=== PATIENT | female | born 1930 | race Two or more races ===

== ENCOUNTER 2016-09-15 21:28 | Emergency (ER) | payer MEDICARE, OTHER ==
[2016-09-15] MEDS ORDERED: ACETAMINOPHEN 325 MG TABLET PO ONE (22:38)
--- NOTE | 2016-09-15 22:38 | ER Document Report ---
ED Fall <AD KELLER - Last Filed: 09/16/16 19:28> - General Mode of Arrival: Ambulatory Information source: Patient, Relative <TREVER CADET - Last Filed: 09/16/16 21:37> - General Chief Complaint: Fall Stated Complaint: LEG NUMBNESS Notes: Patient is an 86 year old female who is brought in by family to the emergency department today for fall just prior to arrival and complaints of left leg pain with movement but numbness as well. Patient apparently is an independent walker at home and lost her footing today falling. Patient states that her "knee gave out from under her"and that is what caused the fall. Family is present and states that they did witness the fall, she did not hit her head or lose consciousness. Since this time she has been unable to bear weight on the left leg and complaining of it being numb. She is also complaining of some low back pain. Family denies that she has lost bladder or bowel function since the incident. (KEELYTREVER) - Related data Allergies/Adverse Reactions: warfarin [From Coumadin] Allergy (Verified 09/16/16 07:36) Past Medical History - General Information source: Patient, Relative - Social History Smoking Status: Never Smoker Frequency of alcohol use: None Drug Abuse: None Family History: Reviewed & Not Pertinent - Past Medical History Cardiac Medical History: Reports: Hx Hypertension Endocrine Medical History: Reports: Hx Diabetes Mellitus Type 2 - Immunizations Hx Diphtheria, Pertussis, Tetanus Vaccination: Yes <TREVER CADET - Last Filed: 09/16/16 21:37> Review of Systems - Review of Systems Constitutional: No symptoms reported EENT: No symptoms reported Cardiovascular: No symptoms reported Respiratory: No symptoms reported Gastrointestinal: No symptoms reported Genitourinary: No symptoms reported Female Genitourinary: No symptoms reported Musculoskeletal: See HPI Skin: No symptoms reported Hematologic/Lymphatic: No symptoms reported Neurological/Psychological: See HPI <DIMITRIPARITREVER WALTER - Last Filed: 09/16/16 21:37> Physical Exam - General General appearance: Appears well, Alert In distress: None - Respiratory Respiratory status: No respiratory distress Chest status: Nontender Breath sounds: Normal - CTAB Chest palpation: Normal. No: Flail segment, [place] frothy sputum, Purulent sputum , Subcutaneous emphysema, Sucking chest wound, Tender, Ecchymosis, Wounds, Other - Cardiovascular Rhythm: Regular Heart sounds: Normal auscultation Murmur: No Pulses: Normal: Radial, Decreased: Dorsalis pedis - bilateral dorsalis pedis pulses present but faint and appear equal. Normal capillary refill: Yes - Abdominal Inspection: Normal Distension: No distension Bowel sounds: Normal Tenderness: Nontender Organomegaly: No organomegaly - Back Back: Nontender - Extremities General upper extremity: Normal inspection, Nontender, Normal color, Normal ROM , Normal strength, Normal temperature. No: Tender, Edema General lower extremity: Normal inspection, Nontender, Normal color, Normal ROM , Normal strength, Normal temperature, Normal weight bearing, Other - Patient has full range of motion to bilateral lower extremities however complains of pain to the left foot and numbness and tingling to left lower leg. Very slight bruising/discoloration noted to the left foot when compared to the right.. No: Tender, Edema, Rocio's sign - Neurological Neuro grossly intact: Yes Cognition: Normal Orientation: AAOx4 Ramya Coma Scale Eye Opening: Spontaneous [place] Coma Scale Verbal: Confused - at patient's baseline per family Ramya Coma Scale Motor: Obeys Commands Ramya Coma Scale Total: 14 <AD KELLER - Last Filed: 09/16/16 19:28> <TREVER CADET - Last Filed: 09/16/16 21:37> - Vital signs Vitals: Temp Pulse Resp BP Pulse Ox 97.4 F 112 H 16 159/55 H 91 L 09/15/16 21:42 09/15/16 21:42 09/15/16 21:42 09/15/16 21:42 09/15/16 21:42 (AD KELLER) (TREVER CADET) - Notes Notes: PHYSICAL EXAMINATION: GENERAL: Elderly, demented, but in no acute distress. HEAD: Atraumatic, normocephalic. EYES: Pupils equal round and reactive to light, extraocular movements intact, sclera anicteric, conjunctiva are normal. NECK: Normal range of motion, supple without lymphadenopathy LUNGS: CTAB and equal. No wheezes rales or rhonchi. HEART: Regular rate and rhythm without murmurs ABDOMEN: Soft, no tenderness. No guarding, no rebound BACK: Lumbar vertebral tenderness, decreased ROM secondary to pain GI/: no CVA tenderness EXTREMITIES: Mild tenderness to the left lateral hip, decreased range of motion secondary to pain, no pitting edema. No cyanosis. NEUROLOGICAL: Cranial nerves grossly intact. Decreased sensation to the left lower extremity compared to right, good distal pulses, good capillary refill PSYCH: Normal mood, normal affect. SKIN: Warm, Dry, normal turgor, no rashes or lesions noted (TREVER CADET) Course - Laboratory Result Diagrams: 09/16/16 17:06 09/16/16 17:06 - Diagnostic Test Radiology reviewed: Image reviewed, Reports reviewed - EKG Interpretation by Me EKG shows normal: Sinus rhythm, [place], Intervals, QRS Complexes, ST-T Waves Rate: Normal Rhythm: A.Fib When compared to previous EKG there are: Previous EKG unavailable <AD KELLER - Last Filed: 09/16/16 19:28> - Laboratory Result Diagrams: 09/16/16 17:06 09/16/16 17:06 <TREVER CADET - Last Filed: 09/16/16 21:37> - Re-evaluation Re-evalutation: 09/16/16 15:20 Decreased arterial flow to left lower extremity on arterial ultrasound per Dr. Jeb Hicks, venous ultrasound negative for DVT. MRI shows large central disc protrusion/herniation at L3-L4 which effaces the thecal sac. Patient presentation and findings were discussed with neurosurgeon Dr. Lopez and vascular surgeon Dr. Macedo at [facility]. Dr. Macedo accepts patient for transfer and concurs with starting heparin therapy at this time. [place] type TLSO brace recommended per Dr. Lopez if we have it available here otherwise they will consult when patient is transferred. Patient remained hemodynamically stable although with asymptomatic hypertension. Patient took home medications as usual today per family members and diet tray was provided. Family reports patient's blood pressure is typically elevated at home with unknown values. Collaborated with ED physician Dr. Connor during evaluation and medical decision-making. 09/16/16 19:00 Patient remains hemodynamically stable, in no distress. Pending transfer vehicle for transfer to [facility] at this time. Report was given to Trever Cadet PA-C to resume care of patient. (AD KELLER) 09/16/16 01:50 CAT scan reveals a compression at L5 vertebra. Family denies that she has ever had this before I suspect that this is from the fall tonight. Due to numbness in left leg and decrease in sensation on physical exam I have placed an order for an MRI which cannot be done until in the morning as we do not have MRI tonight. 09/16/16 02:54 Nurse attempted to ambulate patient, who usually ambulates independently at home , but pt could not even stand on the left leg with assistance due to numbness and pain. 09/16/16 21:00 Transport here to take patient, pt is stable for discharge, no complaints. normal vital signs. (TREVER CADET) - Vital Signs Vital signs: Temp Pulse Resp BP Pulse Ox 97.4 F 112 H 30 H 193/89 H 95 09/15/16 21:42 09/15/16 21:42 09/16/16 20:52 09/16/16 20:52 09/16/16 20:31 (AD KELLER) (TREVER CADET) - Laboratory Laboratory results interpreted by me: 09/16/16 09/16/16 09/16/16 00:30 03:09 03:09 WBC 16.0 H RBC 3.62 L Hgb 9.9 L Hct 30.2 L MCHC RDW 23.2 H Seg Neuts % (Manual) 82 H Band Neutrophils % 2 L Lymphocytes % (Manual) 10 L Abs Neuts (Manual) 13.4 H BUN 37 H Est GFR (Non-Af Amer) 58 L Glucose 153 H POC Glucose 240 H AST 38 H Creatine Kinase 424 H Total Protein 5.8 L Albumin 2.8 L Urine Protein Urine Glucose (UA) Urine Blood Ur Leukocyte Esterase 09/16/16 09/16/16 09/16/16 04:23 17:06 17:06 WBC 13.5 H RBC 3.63 L Hgb 9.9 L Hct 31.0 L MCHC 31.8 L RDW 22.5 H Seg Neuts % (Manual) 85 H Band Neutrophils % Lymphocytes % (Manual) 9 L Abs Neuts (Manual) 11.5 H BUN Est GFR (Non-Af Amer) Glucose 126 H POC Glucose AST 83 H Creatine Kinase Total Protein 5.6 L Albumin 2.6 L Urine Protein 30 H Urine Glucose (UA) 50 H Urine Blood SMALL H Ur Leukocyte Esterase MODERATE H (AD KELLER) Discharge <AD KELLER - Last Filed: 09/16/16 19:28> <TREVER CADET - Last Filed: 09/16/16 21:37> - Discharge Clinical Impression: Arterial insufficiency Condition: Stable Disposition: [facility] Referrals: SARAH MUELLER DO [Primary Care Provider] - Follow up as needed
[2016-09-16] MEDS ORDERED: OXYCODONE HCL IR 5 MG TABLET PO ONE (01:42)
[2016-09-16 03:19] LABS: HEMATOCRIT 30.2 % (36.0-47.0); HEMOGLOBIN 9.9 g/dL (12.0-15.5); HGB HCT DIFFERENCE -0.5; MEAN CORPUSCULAR HEMOGLOBIN 27.3 pg (27.0-33.4); MEAN CORPUSCULAR HGB CONC 32.7 g/dL (32.0-36.0); MEAN CORPUSCULAR VOLUME 83 fl (80-97); RED BLOOD COUNT 3.62 10^6/uL (3.72-5.28); RED CELL DISTRIBUTION WIDTH 23.2 % (11.5-14.0)
[2016-09-16 03:31] LABS: ALANINE AMINOTRANSFERASE 17 U/L (9-52); ALBUMIN 2.8 g/dL (3.5-5.0); ALKALINE PHOSPHATASE 64 U/L (38-126); ANION GAP 12 (5-19); ASPARTATE AMINO TRANSFERASE 38 U/L (14-36); BILIRUBIN,TOTAL 0.5 mg/dL (0.2-1.3); BLOOD UREA NITROGEN 37 mg/dL (7-20); CALCIUM 8.8 mg/dL (8.4-10.2); CARBON DIOXIDE 22 mmol/L (22-30); CHLORIDE 105 mmol/L (98-107); CREATINE KINASE 424 U/L (30-135); CREATININE RESULT 0.92 mg/dL (0.52-1.25); GLUCOSE 153 mg/dL (75-110); POTASSIUM 4.6 mmol/L (3.6-5.0); SODIUM 139.2 mmol/L (137-145); TOTAL PROTEIN 5.8 g/dL (6.3-8.2)
[2016-09-16 03:42] LABS: CREATINE KINASE MB 2.43 ng/mL (<4.55); TROPONIN I 0.03 ng/mL
[2016-09-16 03:50] LABS: BAND NEUTROPHILS % (MANUAL) 2 % (3-5); BASOPHILS % (MANUAL) 1 % (0-2); EOSINOPHILS % (MANUAL) 1 % (0-6); LYMPHOCYTES % (MANUAL) 10 % (13-45); TOTAL CELLS COUNTED 100
[2016-09-16 03:51] LABS: ANISOCYTOSIS 3+
[2016-09-16 08:27] LABS: APPEARANCE,URINE SLIGHTLY-CLOUDY; BILIRUBIN,URINE NEGATIVE (NEGATIVE); GLUCOSE, URINE 50 mg/dL (NEGATIVE); KETONES,URINE NEGATIVE (NEGATIVE); LEUKOCYTE ESTERASE,URINE MODERATE (NEGATIVE); NITRITE,URINE NEGATIVE (NEGATIVE); PROTEIN,URINE 30 mg/dL (NEGATIVE); URINE SPECIFIC GRAVITY 1.023; UROBILINOGEN,URINE NEGATIVE mg/dL (<2.0)
[2016-09-16] MEDS ORDERED: NORMAL SALINE 1000 ML 1,000 ML IV ONE (09:11)
--- NOTE | 2016-09-16 13:40 | EKG REPORT ---
SEVERITY:- ABNORMAL ECG - ATRIAL FIBRILLATION : Confirmed by: Renee Garcia MD 16-Sep-2016 13:38:26
[2016-09-16] MEDS ORDERED: HEPARIN SODIUM,PORCINE/D5W 250 ML IV PRN (15:21)
[2016-09-16] MEDS ORDERED: HEPARIN SOD (PORCINE) 1,000 UNIT/ML 10 ML VIAL IV ONE (15:21)
[2016-09-16] MEDS ORDERED: HEPARIN SOD (PORCINE) 1,000 UNIT/ML 10 ML VIAL IV PRN (15:21)
[2016-09-16] MEDS ORDERED: METOPROLOL TARTRATE 50 MG TABLET PO ONE (16:42)
[2016-09-16 17:20] LABS: HEMOGLOBIN 9.9 g/dL (12.0-15.5); HGB HCT DIFFERENCE -1.3; MEAN CORPUSCULAR HEMOGLOBIN 27.2 pg (27.0-33.4); MEAN CORPUSCULAR HGB CONC 31.8 g/dL (32.0-36.0); MEAN CORPUSCULAR VOLUME 86 fl (80-97); RED BLOOD COUNT 3.63 10^6/uL (3.72-5.28); RED CELL DISTRIBUTION WIDTH 22.5 % (11.5-14.0); WHITE BLOOD COUNT 13.5 10^3/uL (4.0-10.5)
[2016-09-16 17:28] LABS: PARTIAL THROMBOPLASTIN TIME 29.9 SEC (23.5-35.8); PROTHROMBIN TIME 13.4 SEC (11.4-15.4)
[2016-09-16 17:39] LABS: BASOPHILS % (MANUAL) 0 % (0-2); EOSINOPHILS % (MANUAL) 1 % (0-6); LYMPHOCYTES % (MANUAL) 9 % (13-45); TOTAL CELLS COUNTED 100
[2016-09-16 17:40] LABS: ANISOCYTOSIS 2+; OVALOCYTES SLIGHT; POLYCHROMASIA SLIGHT; TOXIC GRANULATION SLIGHT
[2016-09-16 19:22] LABS: ALANINE AMINOTRANSFERASE 28 U/L (9-52); ALBUMIN 2.6 g/dL (3.5-5.0); ALKALINE PHOSPHATASE 64 U/L (38-126); ANION GAP 10 (5-19); ASPARTATE AMINO TRANSFERASE 83 U/L (14-36); BILIRUBIN,TOTAL 0.4 mg/dL (0.2-1.3); BLOOD UREA NITROGEN 18 mg/dL (7-20); CALCIUM 8.7 mg/dL (8.4-10.2); CARBON DIOXIDE 23 mmol/L (22-30); CHLORIDE 105 mmol/L (98-107); CREATININE RESULT 0.57 mg/dL (0.52-1.25); GLUCOSE 126 mg/dL (75-110); POTASSIUM 4.5 mmol/L (3.6-5.0); SODIUM 137.6 mmol/L (137-145); TOTAL PROTEIN 5.6 g/dL (6.3-8.2)
[2016-09-16 20:57] VITALS: BP 193/89
--- NOTE | 2016-09-17 08:00 | XCELERA REPORT ---
[address] [address] Lower Extremity Arterial Evaluation Name: ORA EVERETT Age: 86 yrs Gender: Female : 1930 Patient Status: Emergency Patient Location: ER Study Date: 09/16/2016 01:59 PM Procedure: A color flow and duplex scan of the lower extremity arteries was performed on the left with velocity and waveform anaylsis. Reason For Study: left lower leg/foot pain and discoloration Ordering Physician: AD KELLER Performed By: Sandi Byrd Measurements and Calculations Right Left LEGAL EXECUTIVE PSV 120.1 32.4 cm/sec Prox PFA PSV -15.3 cm/sec Prox SFA PSV 20.1 cm/sec Mid SFA PSV -16.1 cm/sec Dist SFA PSV -16.1 cm/sec Prox Pop A PSV 9.6 cm/sec Prox ERICKA PSV 14.6 cm/sec Edmond Pedis PSV 21.1 10.8 cm/sec Right Side Arterial Evaluation Triphasic in common Femoral artery, Monophasic in Dorsalis Pedis. Left Side Arterial Evaluation Abnormally low velocity, waveform,monophasic, severely dampened flow are present, from the Common Femoral artery down to the infrageniculate vessels. Worse distally. The ankle-brachial index was not done. 50-99 % stenosis is noted at the inflow, possible sequential disease.. Critical Findings Called in to the ER where clinical confirmation of severity was confirmed. Advised transfer for possible urgent vascular intervention. Interpretation Summary Severe hemodynamically significant lesions in the left lower extremity only, on duplex imaging, at rest. Likely limb threatening ischemia on left. Probable significant disease on right as well. : AD KELLER > Monty Hicks
== END 2016-09-16 21:15 | disposition short-term general hospital (02) ==
LOC: ER 21:28
DX: E11.51 Type 2 diabetes mellitus with diabetic peripheral angiopathy without gangrene (principal); I77.1 Stricture of artery; M51.26 Other intervertebral disc displacement, lumbar region; R20.0 Anesthesia of skin; R20.2 Paresthesia of skin; M79.605 Pain in left leg; W19.XXXA Unspecified fall, initial encounter; Y92.009 Unspecified place in unspecified non-institutional (private) residence as the place of occurrence of the external cause; I48.91 Unspecified atrial fibrillation; I10 Essential (primary) hypertension; F03.90 Unspecified dementia, unspecified severity, without behavioral disturbance, psychotic disturbance, mood disturbance, and anxiety; Z88.8 Allergy status to other drugs, medicaments and biological substances; Z79.899 Other long term (current) drug therapy
CPT/HCPCS: 93005; 99285; 96361; 96374; 36415; 82553; 82962; 82550; 85025; 85610; 85730; 80053; 81001; 84484; 93926 ×2; 93971; 72148; 73610; 71010; 73630; 73562; 72192; 93010; A9270 ×3; J1644 ×2; J7030

== ENCOUNTER 2017-01-01 09:57 | Observation (INO) | payer MEDICARE, OTHER ==
--- NOTE | 2017-01-01 10:45 | ER Document Report ---
ED Fall - General Chief Complaint: Fall Stated Complaint: FALL/UNCERTAIN INJURY Mode of Arrival: Medic Information source: Relative Cannot obtain history due to: Dementia Notes: Patient has had decreased appetite and weight loss gradually over the past few weeks. Patient did see her primary doctor yesterday in the office and had a low blood pressure reading in her blood pressure medication metoprolol was decreased to 25 mg a day. Patient got up to go the bathroom yesterday sometime after 7 PM and had fallen in the floor. Patient spouse denies any loss of consciousness. Family state that this is the third fall for patient since September. Patient has had diarrhea for the past 5 days since starting a new medication, embrel. Patient denies any abdominal pain, nausea, vomiting or shortness of breath. Patient does report some chest heaviness that started this morning, but is now resolved. Patient complains of back pain since the fall. - HPI Occurred: Yesterday Where: Home Context: Fell from standing Associated symptoms: denies: Lost consciousness Location of injury/pain: Back. No: Abdomen, Upper extremity, Lower extremity Quality of pain: Achy - Upper back pain Prehospital interventions: No: C-collar, Backboard - Related data Allergies/Adverse Reactions: warfarin [From Coumadin] Allergy (Verified 09/16/16 07:36) Past Medical History - General Information source: Patient, Relative - Social History Smoking Status: Never Smoker Frequency of alcohol use: None Drug Abuse: None Lives with: Spouse/Significant other Family History: Reviewed & Not Pertinent - Past Medical History Cardiac Medical History: Reports: Hx Atrial Fibrillation, Hx DVT, Hx Hypercholesterolemia, Hx Hypertension Musculoskeltal Medical History: Reports Hx Arthritis - Rheumatoid arthritis, Reports Other - Compression fracture of the lumbar area Past Surgical History: Reports: Hx Vascular Surgery - Recent vascular surgery performed in September to remove a DVT - Immunizations Hx Diphtheria, Pertussis, Tetanus Vaccination: Yes Review of Systems - Review of Systems Constitutional: Weight loss - 7 pound weight loss over 3 weeks. denies: Fever EENT: No symptoms reported Cardiovascular: Chest pain - Patient reports chest heaviness that started this morning Respiratory: No symptoms reported. denies: Cough, Short of breath Gastrointestinal: Diarrhea, Poor appetite. denies: Abdominal pain, Nausea, Vomiting Genitourinary: No symptoms reported. denies: Dysuria Female Genitourinary: No symptoms reported Musculoskeletal: Back pain Skin: No symptoms reported Hematologic/Lymphatic: No symptoms reported Neurological/Psychological: Dementia Physical Exam - Vital signs Vitals: Pulse Ox 100 01/01/17 10:00 - General General appearance: Appears well, Alert In distress: None - HEENT Head: Normocephalic, Atraumatic. No: Abrasions, Wheat's sign, Ecchymosis, [place]'s eyes Eyes: Normal Extraocular movements intact: Yes Eyelashes: Normal Pupils: PERRL Ears: Normal External canal: Normal Tympanic membrane: Normal. No: Hemotympanum Nasal: Normal Mouth/Lips: Normal. No: Dental fracture Mucous membranes: Normal Pharynx: Normal. No: Erythema, Tonsillar hypertrophy Neck: Normal, Supple. No: Lymphadenopathy Notes: No cervical midline tenderness, step-off or deformity - Respiratory Respiratory status: No respiratory distress Chest status: Nontender Breath sounds: Normal. No: Rales, Rhonchi, Stridor, Wheezing Chest palpation: Normal - Cardiovascular Rhythm: Irregularly irregular Heart sounds: S1 appreciated, S2 appreciated - Abdominal Inspection: Normal Distension: No distension Bowel sounds: Normal Tenderness: Nontender Organomegaly: No organomegaly - Back Back: Vertebra tenderness - Upper thoracic tenderness. No: Deformity/step-off, CVA tenderness - Extremities General upper extremity: Normal inspection, Nontender, Normal color, Normal ROM , Normal strength. No: Edema General lower extremity: Normal inspection, Nontender, Normal color, Normal ROM , Normal strength. No: Edema - Neurological Neuro grossly intact: Yes Ramya Coma Scale Eye Opening: Spontaneous Ramya Coma Scale Verbal: Oriented [place] Coma Scale Motor: Obeys Commands Ramay Coma Scale Total: 15 - Psychological Associated symptoms: Normal affect, Normal mood - Skin Skin Temperature: Warm Skin Moisture: Dry Skin Color: Normal Course - Re-evaluation Re-evalutation: 01/01/17 12:[address] Nettles regarding patient presentation, reviewed patient's diagnostic test results, EKG and imaging studies. Recommends ordering a urine culture and consulting with hospitalist for admission. 01/01/17 13:03 Patient denies any chest discomfort. Patient states that back pain is improved some. Discussed Test results of diagnostic test results with her spouse. Patient continues with Alex maier on the threat monitoring analyst 01/01/17 13:[address] Millard who agrees to accept patient to telemetry as observation - Vital Signs Vital signs: Temp Pulse Resp BP Pulse Ox 97.6 F 25 H 146/64 H 98 01/01/17 10:26 01/01/17 12:01 01/01/17 12:01 01/01/17 12:01 - Laboratory Result Diagrams: 01/01/17 10:15 01/01/17 10:15 Laboratory results interpreted by me: 01/01/17 01/01/17 01/01/17 10:15 10:15 11:55 WBC 13.5 H Hgb 11.6 L MCHC 31.4 L RDW 20.9 H Seg Neutrophils % 84.6 H Lymphocytes % 8.6 L Absolute Neutrophils 11.4 H BUN 43 H Est GFR (Non-Af Amer) 50 L Glucose 137 H AST 38 H Urine Blood SMALL H Ur Leukocyte Esterase MODERATE H Urine Ascorbic Acid 20 H Labs- Entire Visit 01/01/17 01/01/17 01/01/17 10:15 10:15 10:15 WBC 13.5 H RBC 4.15 Hgb 11.6 L Hct 37.1 MCV 89 MCH 28.1 MCHC 31.4 L RDW 20.9 H Plt Count 272 Seg Neutrophils % 84.6 H Lymphocytes % 8.6 L Monocytes % 5.8 Eosinophils % 0.3 Basophils % 0.7 Absolute Neutrophils 11.4 H Absolute Lymphocytes 1.2 Absolute Monocytes 0.8 Absolute Eosinophils 0.0 Absolute Basophils 0.1 PT INR APTT Sodium 139.4 Potassium 4.8 Chloride 102 Carbon Dioxide 26 Anion Gap 11 BUN 43 H Creatinine 1.04 Est GFR ( Amer) > 60 Est GFR (Non-Af Amer) 50 L Glucose 137 H Calcium 10.0 Magnesium 2.3 Total Bilirubin 0.7 Direct Bilirubin 0.1 Indirect Bilirubin Not Reportable Neonat Total Bilirubin Not Reportable AST 38 H ALT 37 Alkaline Phosphatase 68 Creatine Kinase 38 CK-MB (CK-2) 2.55 Troponin I 0.036 Total Protein 6.8 Albumin 4.0 Lipase 264.4 Urine Color Urine Appearance Urine pH Ur Specific [place] Urine Protein Urine Glucose (UA) Urine Ketones Urine Blood Urine Nitrite Urine Bilirubin Urine Urobilinogen Ur Leukocyte Esterase Urine WBC (Auto) Urine RBC (Auto) Urine Bacteria (Auto) Squamous Epi Cells Auto Urine Ascorbic Acid Digoxin 1.42 01/01/17 01/01/17 10:15 11:55 WBC RBC Hgb Hct MCV MCH MCHC RDW Plt Count Seg Neutrophils % Lymphocytes % Monocytes % Eosinophils % Basophils % Absolute Neutrophils Absolute Lymphocytes Absolute Monocytes Absolute Eosinophils Absolute Basophils PT 13.8 INR 1.03 APTT 26.3 Sodium Potassium Chloride Carbon Dioxide Anion Gap BUN Creatinine Est GFR ( Amer) Est GFR (Non-Af Amer) Glucose Calcium Magnesium Total Bilirubin Direct Bilirubin Indirect Bilirubin Neonat Total Bilirubin AST ALT Alkaline Phosphatase Creatine Kinase CK-MB (CK-2) Troponin I Total Protein Albumin Lipase Urine Color YELLOW Urine Appearance SLIGHTLY-CLOUDY Urine pH 6.0 Ur Specific [place] 1.017 Urine Protein NEGATIVE Urine Glucose (UA) NEGATIVE Urine Ketones NEGATIVE Urine Blood SMALL H Urine Nitrite NEGATIVE Urine Bilirubin NEGATIVE Urine Urobilinogen NEGATIVE Ur Leukocyte Esterase MODERATE H Urine WBC (Auto) 2 Urine RBC (Auto) 5 Urine Bacteria (Auto) TRACE Squamous Epi Cells Auto 2 Urine Ascorbic Acid 20 H Digoxin - Diagnostic Test Radiology reviewed: Reports reviewed Discharge - Discharge Clinical Impression: Fall Qualifiers: Encounter type: initial encounter Qualified Code(s): W19.XXXA - Unspecified fall, initial encounter Back pain Qualifiers: Back pain location: thoracic back pain Chronicity: unspecified Back pain laterality: unspecified Qualified Code(s): M54.6 - Pain in thoracic spine Condition: Stable Disposition: ADMITTED OBSERVATION Admitting Provider: Hospitalist Unit Admitted: Telemetry
[2017-01-01 11:16] LABS: ABSOLUTE BASOPHILS # (AUTO) 0.1 10^3/uL (0.0-0.2); ABSOLUTE LYMPHOCYTES (AUTO) 1.2 10^3/uL (0.5-4.7); ABSOLUTE MONOCYTES (AUTO) 0.8 10^3/uL (0.1-1.4); ABSOLUTE NEUT (AUTO) 11.4 10^3/uL (1.7-8.2); BASOPHILS % (AUTO) 0.7 % (0-2); EOSINOPHILS % (AUTO) 0.3 % (0-6); HEMATOCRIT 37.1 % (36.0-47.0); HEMOGLOBIN 11.6 g/dL (12.0-15.5); HGB HCT DIFFERENCE -2.3; LYMPHOCYTES % (AUTO) 8.6 % (13-45); MEAN CORPUSCULAR HEMOGLOBIN 28.1 pg (27.0-33.4); MEAN CORPUSCULAR HGB CONC 31.4 g/dL (32.0-36.0); MEAN CORPUSCULAR VOLUME 89 fl (80-97); MONOCYTES % (AUTO) 5.8 % (3-13); RED BLOOD COUNT 4.15 10^6/uL (3.72-5.28); RED CELL DISTRIBUTION WIDTH 20.9 % (11.5-14.0); SEGMENTED NEUTROPHILS % (AUTO) 84.6 % (42-78); WHITE BLOOD COUNT 13.5 10^3/uL (4.0-10.5)
[2017-01-01 11:26] LABS: PROTHROMBIN TIME 13.8 SEC (11.4-15.4)
[2017-01-01 11:27] LABS: PARTIAL THROMBOPLASTIN TIME 26.3 SEC (23.5-35.8)
[2017-01-01 11:28] LABS: ALANINE AMINOTRANSFERASE 37 U/L (9-52); ALKALINE PHOSPHATASE 68 U/L (38-126); ANION GAP 11 (5-19); ASPARTATE AMINO TRANSFERASE 38 U/L (14-36); BILIRUBIN,DIRECT 0.1 mg/dL (0.0-0.4); BILIRUBIN,TOTAL 0.7 mg/dL (0.2-1.3); BLOOD UREA NITROGEN 43 mg/dL (7-20); CARBON DIOXIDE 26 mmol/L (22-30); CHLORIDE 102 mmol/L (98-107); CREATINE KINASE 38 U/L (30-135); CREATININE RESULT 1.04 mg/dL (0.52-1.25); DIGOXIN 1.42 ng/mL (0.8-2.0); GLUCOSE 137 mg/dL (75-110); LIPASE 264.4 U/L (23-300); MAGNESIUM 2.3 mg/dL (1.6-2.3); POTASSIUM 4.8 mmol/L (3.6-5.0); SODIUM 139.4 mmol/L (137-145); TOTAL PROTEIN 6.8 g/dL (6.3-8.2)
[2017-01-01 11:37] LABS: CREATINE KINASE MB 2.55 ng/mL (<4.55)
[2017-01-01 11:41] LABS: TROPONIN I 0.036 ng/mL
[2017-01-01] MEDS ORDERED: NORMAL SALINE 1000 ML 250 ML IV ONE (12:11)
[2017-01-01 12:19] LABS: APPEARANCE,URINE SLIGHTLY-CLOUDY; BILIRUBIN,URINE NEGATIVE (NEGATIVE); GLUCOSE, URINE NEGATIVE (NEGATIVE); KETONES,URINE NEGATIVE (NEGATIVE); LEUKOCYTE ESTERASE,URINE MODERATE (NEGATIVE); NITRITE,URINE NEGATIVE (NEGATIVE); PROTEIN,URINE NEGATIVE (NEGATIVE); URINE SPECIFIC GRAVITY 1.017; UROBILINOGEN,URINE NEGATIVE mg/dL (<2.0)
[2017-01-01] MEDS ORDERED: ACETAMINOPHEN 325 MG TABLET PO ONE (13:02)
[2017-01-01] MEDS ORDERED: ASPIRIN 81 MG TABLET, CHEWABLE PO ONE (13:07)
[2017-01-01] MEDS ORDERED: IPRATROPIUM/ALBUTEROL 0.5-2.5 MG/3 ML AMPUL NEB PRN (14:12)
[2017-01-01] MEDS ORDERED: ONDANSETRON HCL INJ/PF 4 MG/2 ML SDV IV PRN (14:12)
[2017-01-01] MEDS ORDERED: ONDANSETRON 4 MG TAB.RAPDIS PO PRN (14:12)
--- NOTE | 2017-01-01 14:32 | PDOC H&P ---
History of Present Illness Admission Date/PCP: 01/01/17 13:28 Patient complains of: Back pain History of Present Illness: ORA EVERETT is a 86 year old female who presented to emergency room with back pain. The patient has dementia and denies any complaints whatsoever. History is obtained from the family. She went to her regular doctor point yesterday and her blood pressure was relatively low and her metoprolol dose was cut in half to 25 mg twice a day. Patient has had several falls since yesterday and had some complaints of back pain. The patient herself denies having any pain at all. Patient was found to have several old compression fractures on her x- rays. The patient had troponins obtained for an unclear reason however they were at the high end of normal. MRSA room personnel were concerned that this may represent some type of cardiac event and have asked us to monitor the patient overnight. In the patient denies any chest pain. She does have a history of atrial fibrillation. The patient has had some diarrhea for the last several days. She denies any chest pain or shortness of breath. Denies any loss of consciousness. Past Medical History Cardiac Medical History: Reports: Atrial Fibrillation, DVT, Hyperlipidema, Hypertension Pulmonary Medical History: Reports: None EENT Medical History: Reports: None Endocrine Medical History: Reports: Diabetes Mellitus Type 2 Renal/ Medical History: Reports: None Malignancy Medical History: Reports: None Musculoskeltal Medical History: Reports: Arthritis - Rheumatoid arthritis, Other - Compression fracture of the lumbar area Psychiatric Medical History: Reports: Dementia Hematology: Reports: None Infectious Medical History: Reports: None Past Surgical History Past Surgical History: Reports: Vascular Surgery - Recent vascular surgery performed in September to remove a DVT Social History Information Source: Relative Lives with: Spouse/Significant other Smoking Status: Never Smoker Frequency of Alcohol Use: None Hx Recreational Drug Use: No Drugs: None Hx Prescription Drug Abuse: No - Advance Directive Resuscitation Status: Full Code Surrogate healthcare decision maker:: Her Family History Family History: Mother at age 91 diabetes mellitus. Father in his 80s with hypertension. Parental Family History Reviewed: Yes Children Family History Reviewed: No Sibling(s) Family History Reviewed.: No Medication/Allergy Allergies/Adverse Reactions: warfarin [From Coumadin] Allergy (Verified 09/16/16 07:36) Review of Systems ROS unobtainable: Due to mental status Physical Exam Vital Signs: Temp Pulse Resp BP Pulse Ox 97.6 F 25 H 146/64 H 98 01/01/17 10:26 01/01/17 12:01 01/01/17 12:01 01/01/17 12:01 General appearance: PRESENT: no acute distress Head exam: PRESENT: atraumatic, normocephalic Eye exam: PRESENT: conjunctiva pink, EOMI, PERRLA. ABSENT: scleral icterus Mouth exam: PRESENT: moist, tongue midline Neck exam: ABSENT: carotid bruit, JVD, lymphadenopathy, thyromegaly Respiratory exam: PRESENT: clear to auscultation madhav. ABSENT: rales, rhonchi, wheezes Cardiovascular exam: PRESENT: irregular rhythm. ABSENT: diastolic murmur, rubs , systolic murmur Pulses: PRESENT: normal dorsalis pedis pul Vascular exam: PRESENT: normal capillary refill GI/Abdominal exam: PRESENT: normal bowel sounds, soft. ABSENT: distended, guarding, mass, organolmegaly, rebound, tenderness Rectal exam: PRESENT: deferred Extremities exam: ABSENT: calf tenderness, clubbing, pedal edema Neurological exam: PRESENT: awake, oriented to person. ABSENT: oriented to place, oriented to time, oriented to situation, motor sensory deficit Psychiatric exam: PRESENT: appropriate affect Skin exam: PRESENT: dry, intact, warm. ABSENT: cyanosis, rash Results Impressions: Chest X-Ray 01/01/17 10:38 IMPRESSION: Borderline cardiomegaly with no acute cardiopulmonary disease. Lumbar Spine X-Ray 01/01/17 10:39 IMPRESSION: All compression changes at L2 and is. Endplate changes at L5 of uncertain age. Thoracic Spine X-Ray 01/01/17 10:39 IMPRESSION: Multiple compression fractures as described. Generally appear to be old, but there certainly could be an acute component. Head CT 01/01/17 10:40 IMPRESSION: 1. There are involutional changes of aging with evidence of chronic microvascular ischemic disease. 2. 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 Recommend clinical and historical correlation. Assessment & Plan - Diagnosis (1) Fall Is this a current diagnosis for this admission?: YesPlan: The patient has had multiple falls but did not have any loss of consciousness. She does have compression fractures on her thoracic spine but they appear to be old. The patient denies any loss of consciousness and this is probably not related to syncope. Her blood pressure was decreased yesterday and her metoprolol was decreased. Patient currently denies any pain. (2) Elevated troponin Is this a current diagnosis for this admission?: YesPlan: Troponin was checked and was on the upper limit of normal. Will monitor overnight to make certain that she's not had any type of acute cardiac event although she denies any chest pain or shortness of breath. (3) Atrial fibrillation Is this a current diagnosis for this admission?: YesPlan: Patient is rate control. (4) Dementia Is this a current diagnosis for this admission?: Yes (5) Hyperlipidemia Is this a current diagnosis for this admission?: Yes (6) Hypertension Is this a current diagnosis for this admission?: YesPlan: Patient recently had her Toprol dose decreased. Will check orthostatics to make certain she does not have orthostatic hypotension. (7) Rheumatoid arthritis Is this a current diagnosis for this admission?: YesPlan: By report the patient has been on Enbrel recently. We'll hold (8) Diabetes mellitus Is this a current diagnosis for this admission?: YesPlan: We'll cover with sliding scale insulin. (9) Back pain Is this a current diagnosis for this admission?: YesPlan: Patient denies any back pain at this time. She does have compression fractures on thoracic spine x-ray films. (10) DVT (deep venous thrombosis) Is this a current diagnosis for this admission?: YesPlan: Patient had a DVT in September. We'll start her anticoagulation. Family is to bring in the medication list. - Time Time Spent: 50 to 70 Minutes - Plan Summary Plan Summary: We'll admit as an observation as I anticipate this will require less than two midnight hospital stay.
[2017-01-01] MEDS ORDERED: ENOXAPARIN SODIUM INJ 30 MG/0.3 ML DISP.SYRIN SUBCUT ONE (15:30)
[2017-01-01 17:18] LABS: CREATINE KINASE MB 3.74 ng/mL (<4.55); TROPONIN I 0.06 ng/mL
--- NOTE | 2017-01-01 19:37 | EKG REPORT ---
SEVERITY:- ABNORMAL ECG - ATRIAL FIBRILLATION, V-RATE 62-143 REPOL ABNRM SUGGESTS ISCHEMIA, DIFFUSE LEADS : Confirmed by: Yadira Teresa 01-Jan-2017 19:36:13
[2017-01-01] MEDS: FAMOTIDINE 20 MG TABLET PO SCH (22:06)
[2017-01-01 22:39] LABS: CREATINE KINASE MB 4.39 ng/mL (<4.55); TROPONIN I 0.065 ng/mL
[2017-01-02 04:21] LABS: CREATINE KINASE MB 5.05 ng/mL (<4.55); TROPONIN I 0.067 ng/mL
[2017-01-02 04:44] LABS: ANION GAP 11 (5-19); BLOOD UREA NITROGEN 30 mg/dL (7-20); CALCIUM 9.4 mg/dL (8.4-10.2); CARBON DIOXIDE 23 mmol/L (22-30); CHLORIDE 110 mmol/L (98-107); CREATININE RESULT 0.75 mg/dL (0.52-1.25); GLUCOSE 79 mg/dL (75-110); POTASSIUM 4.4 mmol/L (3.6-5.0); SODIUM 143.5 mmol/L (137-145)
[2017-01-02] MEDS ORDERED: METOPROLOL TARTRATE 50 MG TABLET ONE (07:09)
[2017-01-02] MEDS ORDERED: METOPROLOL TARTRATE 50 MG TABLET PO ONE (07:15)
[2017-01-02] MEDS ORDERED: ENOXAPARIN SODIUM INJ 40 MG/0.4 ML DISP.SYRIN SUBCUT SCH (08:00)
[2017-01-02] MEDS ORDERED: ENOXAPARIN SODIUM INJ 30 MG/0.3 ML DISP.SYRIN SUBCUT SCH (08:00)
[2017-01-02] MEDS: ACETAMINOPHEN 325 MG TABLET PO PRN (08:35)
--- NOTE | 2017-01-02 09:46 | EKG REPORT ---
SEVERITY:- ABNORMAL ECG - ATRIAL FIBRILLATION PROBABLE LVH WITH SECONDARY REPOL ABNRM ST DEPRESSION, PROBABLY RATE RELATED : Confirmed by: Yadira Teresa 02-Jan-2017 09:45:42
[2017-01-02] MEDS ORDERED: DILTIAZEM HCL 180 MG PO SCH (10:00)
[2017-01-02] MEDS ORDERED: METHOTREXATE SODIUM 2.5 MG TABLET PO SCH (10:00)
--- NOTE | 2017-01-02 10:15 | PDOC PROGRESS REPORT ---
Subjective Progress Note for:: 01/02/17 Subjective:: She denies any complaints. She had an episode of tachycardia with heart rate 150 earlier this morning. Her metoprolol dose was increased. Physical Exam Vital Signs: Temp Pulse Resp BP Pulse Ox 97.8 F 90 16 153/46 H 100 01/02/17 08:00 01/02/17 08:00 01/02/17 08:00 01/02/17 08:00 01/02/17 08:00 Intake & Output 01/01/17 01/02/17 01/03/17 06:59 06:59 06:59 Intake Total 0 Output Total 5 Balance -5 Weight 39.1 kg General appearance: PRESENT: no acute distress Eye exam: PRESENT: conjunctiva pink. ABSENT: scleral icterus Mouth exam: PRESENT: moist, tongue midline Neck exam: ABSENT: JVD Respiratory exam: PRESENT: clear to auscultation madhav. ABSENT: rales, rhonchi, wheezes Cardiovascular exam: PRESENT: irregular rhythm. ABSENT: diastolic murmur, rubs , systolic murmur GI/Abdominal exam: PRESENT: normal bowel sounds, soft. ABSENT: distended, guarding, mass, organolmegaly, rebound, tenderness Extremities exam: ABSENT: calf tenderness, clubbing, pedal edema Neurological exam: PRESENT: alert, awake, oriented to person, oriented to place. ABSENT: oriented to time, oriented to situation Psychiatric exam: PRESENT: appropriate affect Skin exam: PRESENT: dry, intact, warm. ABSENT: cyanosis, rash Results Laboratory Results: 01/02/17 03:48 01/02/17 03:48 Sodium 143.5 Potassium 4.4 Chloride 110 H Carbon Dioxide 23 Anion Gap 11 BUN 30 H Creatinine 0.75 Est GFR ( Amer) > 60 Est GFR (Non-Af Amer) > 60 Glucose 79 Calcium 9.4 01/01/17 01/01/17 01/01/17 16:35 16:35 22:00 Creatine Kinase 44 45 CK-MB (CK-2) 3.74 Troponin I 0.060 01/01/17 01/02/17 01/02/17 22:00 03:48 03:48 Creatine Kinase 50 CK-MB (CK-2) 4.39 5.05 H Troponin I 0.065 0.067 Impressions: Chest X-Ray 01/01/17 10:38 IMPRESSION: Borderline cardiomegaly with no acute cardiopulmonary disease. Lumbar Spine X-Ray 01/01/17 10:39 IMPRESSION: All compression changes at L2 and is. Endplate changes at L5 of uncertain age. Thoracic Spine X-Ray 01/01/17 10:39 IMPRESSION: Multiple compression fractures as described. Generally appear to be old, but there certainly could be an acute component. Head CT 01/01/17 10:40 IMPRESSION: 1. There are involutional changes of aging with evidence of chronic microvascular ischemic disease. 2. 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 Recommend clinical and historical correlation. Assessment & Plan - Diagnosis (1) Fall Qualifiers: Encounter type: initial encounter Qualified Code(s): W19.XXXA - Unspecified fall, initial encounter Is this a current diagnosis for this admission?: YesPlan: The patient has had multiple falls but did not have any loss of consciousness. She does have compression fractures on her thoracic spine but they appear to be old. The patient denies any loss of consciousness and this is probably not related to syncope. Her blood pressure was decreased yesterday and her metoprolol was decreased. Patient currently denies any pain. (2) Elevated troponin Is this a current diagnosis for this admission?: YesPlan: Troponin was flat with no spike. This is not appear to be an acute cardiac event (3) Atrial fibrillation Is this a current diagnosis for this admission?: YesPlan: The patient's heart rate increased this morning. Her metoprolol dose was increased. We'll watch today and if her heart rate remains under control we may discharge home later this afternoon. (4) Dementia Is this a current diagnosis for this admission?: Yes (5) Hyperlipidemia Is this a current diagnosis for this admission?: Yes (6) Hypertension Is this a current diagnosis for this admission?: YesPlan: Patient recently had her Toprol dose decreased. It was increased back to his usual dose today. This was done because of tachycardia. (7) Rheumatoid arthritis Is this a current diagnosis for this admission?: YesPlan: By report the patient has been on Enbrel recently. We'll hold (8) Diabetes mellitus Is this a current diagnosis for this admission?: YesPlan: We'll cover with sliding scale insulin. (9) Back pain Qualifiers: Back pain location: thoracic back pain Chronicity: unspecified Back pain laterality: unspecified Qualified Code(s): M54.6 - Pain in thoracic spine Is this a current diagnosis for this admission?: YesPlan: Patient denies any back pain at this time. She does have compression fractures on thoracic spine x-ray films. (10) DVT (deep venous thrombosis) Is this a current diagnosis for this admission?: YesPlan: Patient had a DVT in September. Have restarted her Eliquis. - Time Time Spent with patient: 25-34 minutes - Plan Summary Plan Summary: If her heart remains rate controlled today we'll discharge him this afternoon, otherwise we may need to watch another 24 hours.
[2017-01-02] MEDS: PREDNISONE 5 MG TABLET PO SCH (12:37)
[2017-01-02] MEDS: DILTIAZEM HCL 180 MG CAPSULE.CR PO SCH (12:37)
[2017-01-02] MEDS: FOLIC ACID 1 MG TABLET PO SCH (12:38)
[2017-01-02] MEDS: FAMOTIDINE 20 MG TABLET PO SCH ×2 (12:39→21:54)
[2017-01-02] MEDS: APIXABAN 2.5 MG TABLET PO SCH ×2 (12:39→21:54)
[2017-01-02] MEDS: ASPIRIN 81 MG TABLET, ENT COATED PO SCH (12:40)
[2017-01-02] MEDS: DIGOXIN 0.125 MG TABLET PO SCH (12:42)
[2017-01-02] MEDS ORDERED: LIDOCAINE 5% (700 MG) TRANSDERMAL ADH..PATCH TP ONE (13:00)
[2017-01-02] MEDS ORDERED: (PENDING PHARMACY ID) (Lisinopril [Zestril] 20 MG) PO SCH (18:00)
[2017-01-02] MEDS ORDERED: LISINOPRIL 10 MG TABLET PO SCH (18:00)
[2017-01-02] MEDS: DIPHENOXYLATE HCL/ATROP SULF 2.5-0.025 MG TABLET PO SCH ×2 (18:03→21:54)
[2017-01-02] MEDS ORDERED: (PENDING PHARMACY ID) (Pravastatin Sodium [Pravachol] 40 MG) PO SCH (22:00)
[2017-01-02] MEDS ORDERED: DONEPEZIL HCL 5 MG TABLET PO SCH (22:00)
[2017-01-02] MEDS ORDERED: (PENDING PHARMACY ID) (Donepezil Hcl [Aricept] 10 MG) PO SCH (22:00)
[2017-01-02] MEDS ORDERED: ATORVASTATIN CALCIUM 10 MG TABLET PO SCH (22:00)
[2017-01-03] MEDS: ACETAMINOPHEN 325 MG TABLET PO PRN (08:39)
[2017-01-03] MEDS ORDERED: CEFTRIAXONE 1 GM/D5W RTU 50 ML IV SCH (10:00)
[2017-01-03] MEDS ORDERED: LIDOCAINE 5% (700 MG) TRANSDERMAL ADH..PATCH TP SCH (10:00)
[2017-01-03] MEDS: ASPIRIN 81 MG TABLET, ENT COATED PO SCH (10:30)
[2017-01-03] MEDS: FOLIC ACID 1 MG TABLET PO SCH (10:30)
[2017-01-03] MEDS: FAMOTIDINE 20 MG TABLET PO SCH (10:30)
[2017-01-03] MEDS: DILTIAZEM HCL 180 MG CAPSULE.CR PO SCH (10:30)
[2017-01-03] MEDS: DIPHENOXYLATE HCL/ATROP SULF 2.5-0.025 MG TABLET PO SCH ×2 (10:30→13:47)
[2017-01-03] MEDS: PREDNISONE 5 MG TABLET PO SCH (10:32)
[2017-01-03] MEDS: APIXABAN 2.5 MG TABLET PO SCH (10:32)
[2017-01-03] MEDS: DIGOXIN 0.125 MG TABLET PO SCH (12:18)
[2017-01-03 12:20] VITALS: BP 129/59
--- NOTE | 2017-01-03 12:28 | PDOC DISCHARGE SUMMARY ---
General - Admit/Disc Date/PCP Admission Date/Primary Care Provider: 01/01/17 14:12 Discharge Date: 01/03/17 - Discharge Diagnosis (1) Fall Is this a current diagnosis for this admission?: Yes (2) Elevated troponin Is this a current diagnosis for this admission?: YesSummary: Troponins remained flat with no spike. No evidence for any type of acute cardiac event. Elevated troponins most likely secondary to her atrial fibrillation with rapid ventricular rate. (3) Atrial fibrillation Is this a current diagnosis for this admission?: YesSummary: Patient had episodes of atrial fibrillation with a rapid ventricular rate. She recently had her metoprolol dose decreased. Her dose was increased back to what she was on previously with control of her heart rate. (4) Dementia Is this a current diagnosis for this admission?: Yes (5) Hyperlipidemia Is this a current diagnosis for this admission?: Yes (6) Hypertension Is this a current diagnosis for this admission?: Yes (7) Rheumatoid arthritis Is this a current diagnosis for this admission?: Yes (8) Diabetes mellitus Is this a current diagnosis for this admission?: Yes (9) Back pain Is this a current diagnosis for this admission?: YesSummary: She was started on a lidocaine patch. (10) DVT (deep venous thrombosis) Is this a current diagnosis for this admission?: Yes (11) Urinary tract infection Is this a current diagnosis for this admission?: YesSummary: Patient was given Rocephin 1. Sent home on a course of Omnicef. - Additional Information Resuscitation Status: Full Code Discharge Diet: Cardiac Discharge Activity: Activity As Tolerated Home Medications: Apixaban [Eliquis 2.5 mg Tablet] 2.5 mg PO Q12 01/01/17 Aspirin [Ecotrin 81 mg EC Tablet] 81 mg PO DAILY 01/01/17 Digoxin [Lanoxin 0.125 mg Tablet] 0.125 mg PO DAILY@1300 01/01/17 Diltiazem HCl [Taztia Xt] 180 mg PO DAILY 01/01/17 Donepezil HCl [Aricept] 10 mg PO QHS 01/01/17 Etanercept [Enbrel] 50 mg SQ MO 01/01/17 Folic Acid 1 mg PO DAILY 01/01/17 Hydroxychloroquine Sulfate [Plaquenil 200 mg Tablet] 200 mg PO WEFR 01/01/17 Lisinopril [Zestril] 20 mg PO QPM 01/01/17 Methotrexate Sodium [Methotrexate] 15 mg PO SA 01/01/17 Metoprolol Tartrate [Lopressor 50 mg Tablet] 25 mg PO Q12 01/01/17 Pravastatin Sodium [Pravachol] 40 mg PO QHS 01/01/17 Prednisone [Deltasone 5 mg Tablet] 5 mg PO DAILY 01/01/17 Spironolactone [Aldactone 25 mg Tablet] 25 mg PO WEFR@1800 01/01/17 Cefdinir [Omnicef 300 mg Capsule] 1 cap PO BID #14 capsule 01/03/17 Diphenoxylate HCl/Atrop Sulf [Lomotil 2.5 mg Tablet] 1 tab PO QID PRN #30 tablet 01/03/17 Lidocaine [Lidoderm 5% (700 mg) Transdermal Patch] 1 patch TP DAILY #30 adh..patch 01/03/17 History of Present Illness History of Present Illness: ORA EVERETT is a 86 year old female who presented to emergency room with back pain. The patient has dementia and denies any complaints whatsoever. History is obtained from the family. She went to her regular doctor point yesterday and her blood pressure was relatively low and her metoprolol dose was cut in half to 25 mg twice a day. Patient has had several falls since yesterday and had some complaints of back pain. The patient herself denies having any pain at all. Patient was found to have several old compression fractures on her x- rays. The patient had troponins obtained for an unclear reason however they were at the high end of normal. MRSA room personnel were concerned that this may represent some type of cardiac event and have asked us to monitor the patient overnight. In the patient denies any chest pain. She does have a history of atrial fibrillation. The patient has had some diarrhea for the last several days. She denies any chest pain or shortness of breath. Denies any loss of consciousness. Hospital Course Hospital Course: Patient admitted after having a fall. There was concern that this may be somehow related to her cardiac issues. The patient was monitored on telemetry and did have episodes of atrial fibrillation with a rapid ventricular rate. Because of this her metoprolol dose was increased back to the dose she was on last week. Her dose was decreased this week because of some relatively low blood pressures. Patient may need a cardiac ablation because of the probability of her having sick sinus syndrome. Patient had troponins were mildly elevated however they remained flat with no obvious spike. It's felt positive troponins were secondary to her atrial fibrillation. The patient also had complaints of back pain and was started on a lidocaine patch. She also had a urine culture that grew out gram-negative rods. She was given Rocephin IV 1 and sent home on oral Omnicef. Physical Exam Vital Signs: Temp Pulse Resp BP Pulse Ox 97.9 F 92 16 129/59 H 99 01/03/17 11:22 01/03/17 11:22 01/03/17 11:22 01/03/17 11:22 01/03/17 11:22 Intake & Output 01/02/17 01/03/17 01/04/17 06:59 06:59 06:59 Intake Total 0 750 Output Total 5 Balance -5 750 Weight 39.1 kg 36.5 kg General appearance: PRESENT: no acute distress Eye exam: PRESENT: conjunctiva pink. ABSENT: scleral icterus Mouth exam: PRESENT: moist, tongue midline Neck exam: ABSENT: carotid bruit, JVD, lymphadenopathy, thyromegaly Respiratory exam: PRESENT: clear to auscultation madhav. ABSENT: rales, rhonchi, wheezes Cardiovascular exam: PRESENT: irregular rhythm. ABSENT: diastolic murmur, rubs , systolic murmur GI/Abdominal exam: PRESENT: normal bowel sounds, soft. ABSENT: distended, guarding, mass, organolmegaly, rebound, tenderness Extremities exam: ABSENT: calf tenderness, clubbing, pedal edema Neurological exam: PRESENT: alert, awake, oriented to person, oriented to place , CN II-XII grossly intact. ABSENT: oriented to time, oriented to situation, motor sensory deficit Psychiatric exam: PRESENT: flat affect Skin exam: PRESENT: dry, intact, warm. ABSENT: cyanosis, rash Results Laboratory Results: 01/02/17 03:48 01/01/17 01/01/17 01/01/17 16:35 16:35 22:00 Creatine Kinase 44 45 CK-MB (CK-2) 3.74 Troponin I 0.060 01/01/17 01/02/17 01/02/17 22:00 03:48 03:48 Creatine Kinase 50 CK-MB (CK-2) 4.39 5.05 H Troponin I 0.065 0.067 Impressions: Chest X-Ray 01/01/17 10:38 IMPRESSION: Borderline cardiomegaly with no acute cardiopulmonary disease. Lumbar Spine X-Ray 01/01/17 10:39 IMPRESSION: All compression changes at L2 and is. Endplate changes at L5 of uncertain age. Thoracic Spine X-Ray 01/01/17 10:39 IMPRESSION: Multiple compression fractures as described. Generally appear to be old, but there certainly could be an acute component. Head CT 01/01/17 10:40 IMPRESSION: 1. There are involutional changes of aging with evidence of chronic microvascular ischemic disease. 2. 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 Recommend clinical and historical correlation. Qualifiers PATEINT BEING DISCHARGED WITH ANY OF THE FOLLOWING DIAGNOSIS?: No Plan Discharge Plan: Patient is discharged home in stable condition. She will follow up with her primary care doctor in 1-2 weeks. Time Spent: Less than 30 Minutes
[2017-01-06] MEDS ORDERED: HYDROXYCHLOROQUINE SULFATE 200 MG TABLET PO SCH (10:00)
[2017-01-06] MEDS ORDERED: SPIRONOLACTONE 25 MG TABLET PO SCH (18:00)
== END 2017-01-03 14:40 | disposition home health service (06) ==
LOC: ER 09:57 → UNDOADMOB 13:28 → EH 13:28 → 4N 16:33
PROVIDERS: ADMIT Emergency Medicine; ATTEND Emergency Medicine
DX: M54.6 Pain in thoracic spine (principal); W19.XXXA Unspecified fall, initial encounter; R74.8 Abnormal levels of other serum enzymes; I48.91 Unspecified atrial fibrillation; F03.90 Unspecified dementia, unspecified severity, without behavioral disturbance, psychotic disturbance, mood disturbance, and anxiety; E78.5 Hyperlipidemia, unspecified; I10 Essential (primary) hypertension; M06.9 Rheumatoid arthritis, unspecified; E11.9 Type 2 diabetes mellitus without complications; Y92.009 Unspecified place in unspecified non-institutional (private) residence as the place of occurrence of the external cause; N39.0 Urinary tract infection, site not specified; B96.89 Other specified bacterial agents as the cause of diseases classified elsewhere; R19.7 Diarrhea, unspecified; R63.4 Abnormal weight loss; R63.0 Anorexia; R29.6 Repeated falls; Z91.81 History of falling; Z86.718 Personal history of other venous thrombosis and embolism; Z82.49 Family history of ischemic heart disease and other diseases of the circulatory system; Z83.3 Family history of diabetes mellitus; Z98.890 Other specified postprocedural states; Z87.311 Personal history of (healed) other pathological fracture; Z79.899 Other long term (current) drug therapy; Z68.1 Body mass index [BMI] 19.9 or less, adult
CPT/HCPCS: 93005 ×2; 99285; 36415 ×2; 87086; 82553 ×2; 82550 ×2; 80162; 83690; 83735; 85025; 85610; 85730; 87088; 80048; 80053; 81001; 84484 ×2; 87186; 87493 ×2; 71020; 72110; 72070; 70450; 93010 ×2; G0378 ×4; A9270 ×24; J8610; J3490 ×2; J1650; J7030; J0696; J7512

== ENCOUNTER 2017-01-19 22:05 | Emergency (ER) | payer MEDICARE, OTHER ==
[2017-01-19] MEDS ORDERED: GLUCAGON,HUMAN RECOMB 1 MG INJ SUBCUT ONE (22:12)
[2017-01-19] MEDS ORDERED: NORMAL SALINE 1000 ML 1,000 ML IV PRN ×2 (22:35→22:41)
[2017-01-19] MEDS ORDERED: ATROPINE SULFATE INJ 1 MG/1 ML VIAL IV ONE (22:41)
--- NOTE | 2017-01-19 22:42 | ER Document Report ---
ED Cardiac - General Stated Complaint: DIFFICULTY BREATHING/HEART PROBLEMS Time Seen by Provider: 01/19/17 22:10 Mode of Arrival: Stretcher Information source: Relative, Emergency Med Personnel TRAVEL OUTSIDE OF THE [place] IN LAST 30 DAYS: No - HPI Patient complains to provider of: Shortness of breath, Other - Bradycardia Is the pain a: New problem Chest pain location: Back Quality of pain: Achy Associated symptoms: Shortness of breath Similar symptoms previously: Yes Recently seen / treated by doctor: Yes Notes: Patient is an 86-year-old female with a history of atrial fibrillation as well as other medical problems who presents to the emergency room via EMS for change in mental status with profound bradycardia, family reports that she has not been eating or drinking over the past 3 weeks but continues to take her medications, she is complaining of back pain stemming from a fall that she sustained approximately 2-3 weeks ago, she was actually admitted to the hospital at that point in time, some medication changes were made while she was inpatient for her primary care provider changed her medications back which included a decreased dose of metoprolol, however patient continues to be on digoxin, metoprolol and Cardizem for control of her atrial fibrillation, when EMS arrived at the house they found her heart rate to be in the 20s, she received a dose of atropine prior to arrival and has a heart rate in the low 30s on arrival - Related Data Allergies/Adverse Reactions: warfarin [From Coumadin] Allergy (Verified 09/16/16 07:36) Past Medical History - General Information source: Relative, Emergency Med Personnel - Social History Smoking Status: Unknown if Ever Smoked Family History: Reviewed & Not Pertinent - Past Medical History Cardiac Medical History: Reports: Hx Atrial Fibrillation, Hx DVT, Hx Hypercholesterolemia, Hx Hypertension Endocrine Medical History: Reports: Hx Diabetes Mellitus Type 2 Musculoskeltal Medical History: Reports Hx Arthritis Psychiatric Medical History: Reports: Hx Dementia Past Surgical History: Reports: Hx Vascular Surgery - Recent vascular surgery performed in September to remove a DVT - Immunizations Hx Diphtheria, Pertussis, Tetanus Vaccination: Yes Review of Systems - Review of Systems Constitutional: Weakness, Weight loss EENT: No symptoms reported Cardiovascular: No symptoms reported Respiratory: Short of breath Gastrointestinal: No symptoms reported Genitourinary: No symptoms reported Female Genitourinary: No symptoms reported Musculoskeletal: Back pain Skin: No symptoms reported Hematologic/Lymphatic: No symptoms reported Neurological/Psychological: See HPI -: Yes All other systems reviewed and negative Physical Exam - Vital signs Vitals: Pulse Ox 100 01/19/17 22:11 Interpretation: Bradycardic - General General appearance: Alert, Other - Chronically ill-appearing, frail, cachectic In distress: Mild - HEENT Head: Normocephalic, Atraumatic Eyes: Normal Conjunctiva: Normal Extraocular movements intact: Yes Eyelashes: Normal Pupils: PERRL Mucous membranes: Dry Pharynx: Normal Neck: Normal - Respiratory Respiratory status: No respiratory distress Chest status: Nontender Breath sounds: Normal Chest palpation: Normal - Cardiovascular Rhythm: Irregularly irregular, Bradycardia Pulses: Decreased: Radial, Popliteal Normal capillary refill: No - decreased - Abdominal Inspection: Normal Distension: No distension Bowel sounds: Normal Tenderness: Nontender Organomegaly: No organomegaly - Rectal Tenderness: No Stool: Bloody - Bright red blood per rectum - Extremities General upper extremity: Nontender. No: Normal temperature - Cool to touch with decreased perfusion General lower extremity: Nontender. No: Normal temperature - Cool to touch with decreased perfusion, Rocio's sign - Neurological Neuro grossly intact: Yes Cognition: Confused [place] Coma Scale Eye Opening: Spontaneous Ramya Coma Scale Verbal: Confused [place] Coma Scale Motor: Obeys Commands [place] Coma Scale Total: 14 Motor strength normal: LUE, RUE, LLE, RLE Sensory: Normal - Skin Skin Temperature: Cool Skin Moisture: Dry Skin Color: Pale Course - Re-evaluation Re-evalutation: 01/19/17 23:16 Patient was discussed with Robbin at poison control, patient's presentation, vital signs, medications were discussed, he will do some research and call back with some ideas 01/20/17 01:11 Patient was discussed with poison control once again, the seed potato arranger does recommend the patient receive 2 to vital's of Digibind Patient was discussed with Dr. Powell, at [facility] who accepts patient for transfer, transfer center will call back with bed assignment once a bed is available 01/20/17 03:06 [facility] was called back, they report that they do not anticipate an available bed for at least the next 8-10 hours A call was placed to [facility] in [place], patient was discussed with Wade in the transfer center, who reports they have 1 patient on the list waiting for an ICU bed but patients information and will have hospitalist service callback 01/20/17 03:28 Nursing staff reports patient had an episode of vomiting, brown bilious appearing material, no coffee ground 01/20/17 03:38 Patient was discussed with Dr. Jovanny Covington, MICU attending at [facility] who also accepts patient for transfer, however reports that they do not currently have any beds available either 01/20/17 03:44 Patient was discussed with Vadim in the transfer center at [facility] in [place], awaiting callback from hospitalist - Vital Signs Vital signs: Temp Pulse Resp BP Pulse Ox 96.8 F L 30 H 130/66 H 100 01/20/17 03:35 01/20/17 03:35 01/20/17 03:31 01/20/17 03:31 - Laboratory Result Diagrams: 01/20/17 00:08 01/20/17 02:40 Laboratory results interpreted by me: 01/19/17 01/19/17 01/19/17 22:23 22:23 22:40 WBC RBC Hgb Hct MCHC RDW Seg Neuts % (Manual) Lymphocytes % (Manual) Monocytes % (Manual) Abs Neuts (Manual) VBG pH VBG pCO2 VBG HCO3 Sodium 131.8 L Potassium 6.5 H* Chloride Carbon Dioxide 13 L BUN 63 H Creatinine 2.00 H Est GFR ( Amer) 29 L Est GFR (Non-Af Amer) 24 L Glucose 196 H Magnesium 2.9 H Direct Bilirubin AST 91 H ALT 71 H CK-MB (CK-2) 5.72 H NT-Pro-B Natriuret Pep 7570 H Total Protein 5.1 L Albumin 2.9 L Lipase 310.4 H Digoxin 3.50 H* Crossmatch 01/20/17 01/20/17 01/20/17 00:08 01:41 02:40 WBC 15.6 H RBC 3.11 L Hgb 8.7 L Hct 29.4 L MCHC 29.5 L RDW 22.2 H Seg Neuts % (Manual) 92 H Lymphocytes % (Manual) 6 L Monocytes % (Manual) 2 L Abs Neuts (Manual) 14.4 H VBG pH VBG pCO2 VBG HCO3 Sodium 135.3 L Potassium 5.5 H D Chloride 109 H Carbon Dioxide 14 L BUN 64 H Creatinine 1.69 H Est GFR ( Amer) 35 L Est GFR (Non-Af Amer) 29 L Glucose 122 H Magnesium Direct Bilirubin 0.6 H AST 271 H ALT 175 H CK-MB (CK-2) NT-Pro-B Natriuret Pep Total Protein 5.3 L Albumin 2.8 L Lipase Digoxin Crossmatch See Detail 01/20/17 02:40 WBC RBC Hgb Hct MCHC RDW Seg Neuts % (Manual) Lymphocytes % (Manual) Monocytes % (Manual) Abs Neuts (Manual) VBG pH 7.27 L VBG pCO2 31.4 L VBG HCO3 14.0 L Sodium Potassium Chloride Carbon Dioxide BUN Creatinine Est GFR ( Amer) Est GFR (Non-Af Amer) Glucose Magnesium Direct Bilirubin AST ALT CK-MB (CK-2) NT-Pro-B Natriuret Pep Total Protein Albumin Lipase Digoxin Crossmatch - Diagnostic Test Radiology reviewed: Image reviewed, Reports reviewed - EKG Interpretation by Me Rate: Bradycardia Rhythm: A.Fib Additional EKG results interpreted by me: 01/20/17 03:45 Repeat EKG is consistent with A. fib at a rate of 119 similar to previous EKGs from prior visits Critical Care Note - Critical Care Note Total time excluding time spent on procedures (mins): 120 Comments: Patient with profound bradycardia, hypothermia, GI bleed, with dehydration and likely effects of digoxin toxicity, calcium channel shalini toxicity and beta shalini toxicity from severe dehydration, requiring consultation with poison control, discussions with hospitalist at tertiary care center as well as family Discharge - Discharge Clinical Impression: Bradycardia, Hyperkalemia, Dehydration Atrial fibrillation Qualifiers: Atrial fibrillation type: chronic Qualified Code(s): I48.2 - Chronic atrial fibrillation GI bleed Qualifiers: GI bleed type/associated pathology: melena Qualified Code(s): K92.1 - Melena Digoxin toxicity Qualifiers: Encounter type: initial encounter Injury intent: accidental or unintentional Qualified Code(s): T46.0X1A - Poisoning by cardiac-stimulant glycosides and drugs of similar action, accidental (unintentional), initial encounter
[2017-01-19] MEDS ORDERED: DEXTROSE 50%-WATER 25 GM/50 ML DISP.SYRIN IV ONE (23:01)
[2017-01-19] MEDS ORDERED: INSULIN REG, HUMAN 100 UNIT/ML 3 ML VIAL (PYX) IV ONE (23:01)
[2017-01-19] MEDS ORDERED: CALCIUM GLUCONATE 1000 MG/10 ML INJ IV ONE (23:09)
[2017-01-19] MEDS ORDERED: DEXTROSE 5%-WATER 250 ML with EPINEPHRINE/PF 1 MG IV PRN ×2 (23:18)
[2017-01-19 23:24] LABS: ALANINE AMINOTRANSFERASE 71 U/L (9-52); ALBUMIN 2.9 g/dL (3.5-5.0); ALKALINE PHOSPHATASE 104 U/L (38-126); ANION GAP 18 (5-19); ASPARTATE AMINO TRANSFERASE 91 U/L (14-36); BILIRUBIN,DIRECT 0.4 mg/dL (0.0-0.4); BILIRUBIN,TOTAL 0.7 mg/dL (0.2-1.3); BLOOD UREA NITROGEN 63 mg/dL (7-20); CALCIUM 8.8 mg/dL (8.4-10.2); CARBON DIOXIDE 13 mmol/L (22-30); CHLORIDE 101 mmol/L (98-107); CREATINE KINASE 115 U/L (30-135); GLUCOSE 196 mg/dL (75-110); LIPASE 310.4 U/L (23-300); SODIUM 131.8 mmol/L (137-145); TOTAL PROTEIN 5.1 g/dL (6.3-8.2)
[2017-01-19 23:31] LABS: CREATINE KINASE MB 5.72 ng/mL (<4.55)
[2017-01-19 23:34] LABS: TROPONIN I 0.073 ng/mL
[2017-01-20 00:02] LABS: POTASSIUM 6.5 mmol/L (3.6-5.0)
[2017-01-20 00:10] LABS: FREE T3 3.36 pg/mL (2.77-5.27)
[2017-01-20 00:24] LABS: THYROID STIMULATING HORMONE 0.92 uIU/mL (0.47-4.68)
[2017-01-20] MEDS ORDERED: DIGOXIN IMMUNE FAB 40 MG IV ONE (00:42)
[2017-01-20 00:44] LABS: HEMATOCRIT 29.4 % (36.0-47.0); HEMOGLOBIN 8.7 g/dL (12.0-15.5); HGB HCT DIFFERENCE -3.3; MEAN CORPUSCULAR HEMOGLOBIN 27.9 pg (27.0-33.4); MEAN CORPUSCULAR HGB CONC 29.5 g/dL (32.0-36.0); RED BLOOD COUNT 3.11 10^6/uL (3.72-5.28); RED CELL DISTRIBUTION WIDTH 22.2 % (11.5-14.0); WHITE BLOOD COUNT 15.6 10^3/uL (4.0-10.5)
[2017-01-20 00:45] LABS: MEAN CORPUSCULAR VOLUME 95 fl (80-97)
[2017-01-20 00:47] LABS: BASOPHILS % (MANUAL) 0 % (0-2); EOSINOPHILS % (MANUAL) 0 % (0-6); LYMPHOCYTES % (MANUAL) 6 % (13-45); NUCLEATED RED BLOOD CELLS 1 /100 WBC (0); TOTAL CELLS COUNTED 100; TOXIC GRANULATION SLIGHT; TOXIC VACUOLATION PRESENT
[2017-01-20] MEDS ORDERED: NORMAL SALINE 1000 ML 1,000 ML IV PRN ×3 (00:52→02:01)
[2017-01-20 00:53] LABS: ANISOCYTOSIS 3+; OVALOCYTES 1+
[2017-01-20 00:54] LABS: POIKILOCYTOSIS 1+; POLYCHROMASIA 1+
[2017-01-20 00:55] LABS: BURR CELLS SLIGHT; TEAR DROP CELLS SLIGHT
[2017-01-20] MEDS ORDERED: NORMAL SALINE 250 ML IV PRN (01:06)
[2017-01-20] MEDS ORDERED: SODIUM BICARBONATE 8.4% INJ 50 MEQ/50 ML DISP.SYRIN ONE (02:18)
[2017-01-20] MEDS: DEXTROSE 5%-WATER 1000 ML 1,000 ML with SODIUM BICARBONATE 100 MEQ IV PRN ×4 (02:30→03:04)
[2017-01-20 02:48] LABS: VENOUS BLOOD BASE EXCESS -11.8 mmol/L; VENOUS BLOOD PCO2 31.4 mmHg (35-63); VENOUS BLOOD PH 7.27 (7.30-7.42)
[2017-01-20 03:00] LABS: ALANINE AMINOTRANSFERASE 175 U/L (9-52); ALBUMIN 2.8 g/dL (3.5-5.0); ALKALINE PHOSPHATASE 111 U/L (38-126); ANION GAP 12 (5-19); ASPARTATE AMINO TRANSFERASE 271 U/L (14-36); BILIRUBIN,DIRECT 0.6 mg/dL (0.0-0.4); BILIRUBIN,TOTAL 0.9 mg/dL (0.2-1.3); BLOOD UREA NITROGEN 64 mg/dL (7-20); CALCIUM 8.8 mg/dL (8.4-10.2); CARBON DIOXIDE 14 mmol/L (22-30); CHLORIDE 109 mmol/L (98-107); CREATININE RESULT 1.69 mg/dL (0.52-1.25); GLUCOSE 122 mg/dL (75-110); SODIUM 135.3 mmol/L (137-145); TOTAL PROTEIN 5.3 g/dL (6.3-8.2)
[2017-01-20 03:07] LABS: POTASSIUM 5.5 mmol/L (3.6-5.0)
[2017-01-20] MEDS ORDERED: PANTOPRAZOLE SODIUM 40 MG VIAL IV ONE (03:27)
[2017-01-20] MEDS ORDERED: ONDANSETRON HCL INJ/PF 4 MG/2 ML SDV IV ONE (03:27)
[2017-01-20 03:56] VITALS: BP 144/129
[2017-01-20] MEDS ORDERED: DILTIAZEM HCL INJ 25 MG/5 ML VIAL ONE (04:37)
--- NOTE | 2017-01-20 17:18 | EKG REPORT ---
SEVERITY:- ABNORMAL ECG - ATRIAL FIBRILLATION WITH BRADYCARDIC VENTRICULAR RESPONSE : Confirmed by: Renee Garcia MD 20-Jan-2017 09:09:27
--- NOTE | 2017-01-20 17:18 | EKG REPORT ---
SEVERITY:- ABNORMAL ECG - ATRIAL FIBRILLATION REPOL ABNRM SUGGESTS ISCHEMIA, DIFFUSE LEADS : Confirmed by: Renee Garcia MD 20-Jan-2017 09:08:26
== END 2017-01-21 04:49 | disposition short-term general hospital (02) ==
LOC: ER 22:05
DX: R00.1 Bradycardia, unspecified (principal); E87.5 Hyperkalemia; E86.0 Dehydration; I48.2 Chronic atrial fibrillation; K92.1 Melena; R06.02 Shortness of breath; M54.9 Dorsalgia, unspecified
CPT/HCPCS: 93005; 99291; 99292; 96372; 96375; 96365; 96366; 96367; 86900; 86901; 36415; 87040; 84439; 82553; 36430; 86850; 82550; 80162; 83690; 83735; 84443; 85025; 82272; 80053; 84484; 84481; 86920; 82803; 83880; 71010; 93010; P9016; J1162; J0610; J3490 ×3; A9270; J2405; J1815; S0164

== ENCOUNTER 2017-01-29 21:33 | Inpatient (IN) | payer MEDICARE, OTHER ==
--- NOTE | 2017-01-29 21:49 | RADIOLOGY REPORT (SQ) ---
EXAM DESCRIPTION: CT HEAD WITHOUT COMPLETED DATE/TIME: 01/29/2017 9:40 pm REASON FOR STUDY: stroke alert COMPARISON: 01/01/2017 TECHNIQUE: Axial images acquired through the brain without intravenous contrast. Images reviewed wi th bone, brain and subdural windows. Images stored on PACS. All CT scanners at this facility use dose modulation, iterative reconstruction, and/or weight based d osing when appropriate to reduce radiation dose to as low as reasonably achievable (ALARA). [facility]: Dose Right [facility]: CareDose [facility]: Dose Right [facility]: Teradose 4D [facility]: [employer] RADIATION DOSE: 64.61mGy. LIMITATIONS: Motion. FINDINGS: VENTRICLES: Prominent. CEREBRUM: No masses. No hemorrhage. No midline shift. Stable areas of chronic infarction involving the left frontal lobe and right occipital lobe. Additional areas of low density in the white matter most likely due to chronic micro-vascular ischemic change. No evidence for acute infarction. CEREBELLUM: No masses. No hemorrhage. No alteration of density. No evidence for acute infarction. EXTRAAXIAL SPACES: Age-related involutional change. No fluid collections. No masses. ORBITS AND GLOBE: No intra- or extraconal masses. Normal contour of globe without masses. CALVARIUM: No fracture. PARANASAL SINUSES: No fluid or mucosal thickening. SOFT TISSUES: No mass or hematoma. OTHER: No other significant finding. IMPRESSION: NO CT DEFINITE EVIDENCE OF ACUTE ISCHEMIA, HEMORRHAGE, OR MASS LESION. NO SIGNIFICANT C HANGE FROM PRIOR STUDY. COMMENT: Pertinent positive or negative findings of the imaging study reported as a CRITICAL EXAM t o ER PROVIDER at21:43 on 01/29/2017. Category of Critical Exam: CODE STROKE TECHNICAL DOCUMENTATION: JOB ID: [id number] Quality ID # [id number]: Final reports with documentation of one or more dose reduction techniques (e.g., Au tomated exposure control, adjustment of the mA and/or kV according to patient size, use of iterative reconstruction technique) 2010 [employer]- All Rights Reserved
--- NOTE | 2017-01-29 21:51 | RADIOLOGY REPORT (SQ) ---
EXAM DESCRIPTION: CHEST SINGLE VIEW COMPLETED DATE/TIME: 01/29/2017 9:41 pm REASON FOR STUDY: stroke alert COMPARISON: 01/19/2017 EXAM PARAMETERS: NUMBER OF VIEWS: One view. TECHNIQUE: Single frontal radiographic view of the chest acquired. RADIATION DOSE: NA LIMITATIONS: None. FINDINGS: LUNGS AND PLEURA: Stable chronic lung change without new opacities, masses or pneumothorax . No pleural effusion. MEDIASTINUM AND HILAR STRUCTURES: No masses. Contour normal. HEART AND VASCULAR STRUCTURES: Heart stable in size. Normal vasculature. BONES: No acute findings. HARDWARE: None in the chest. OTHER: No other significant finding. IMPRESSION: NO ACUTE CARDIOPULMONARY PROCESS. NO SIGNIFICANT CHANGE FROM PRIOR STUDY. TECHNICAL DOCUMENTATION: JOB ID: [id number]
[2017-01-29 22:27] LABS: PARTIAL THROMBOPLASTIN TIME 23.9 SEC (23.5-35.8); PROTHROMBIN TIME 12.8 SEC (11.4-15.4)
[2017-01-29 22:31] LABS: HEMATOCRIT 43.6 % (36.0-47.0); HEMOGLOBIN 14.3 g/dL (12.0-15.5); HGB HCT DIFFERENCE -0.7; MEAN CORPUSCULAR HGB CONC 32.7 g/dL (32.0-36.0); MEAN CORPUSCULAR VOLUME 92 fl (80-97); RED BLOOD COUNT 4.76 10^6/uL (3.72-5.28); RED CELL DISTRIBUTION WIDTH 21.6 % (11.5-14.0); WHITE BLOOD COUNT 9.5 10^3/uL (4.0-10.5)
[2017-01-29 22:36] LABS: ALANINE AMINOTRANSFERASE 52 U/L (9-52); ALKALINE PHOSPHATASE 115 U/L (38-126); ANION GAP 11 (5-19); ASPARTATE AMINO TRANSFERASE 73 U/L (14-36); BILIRUBIN,DIRECT 0.3 mg/dL (0.0-0.4); BILIRUBIN,TOTAL 0.6 mg/dL (0.2-1.3); BLOOD UREA NITROGEN 16 mg/dL (7-20); CALCIUM 8.6 mg/dL (8.4-10.2); CARBON DIOXIDE 22 mmol/L (22-30); CHLORIDE 101 mmol/L (98-107); CREATINE KINASE 89 U/L (30-135); CREATININE RESULT 0.68 mg/dL (0.52-1.25); DIGOXIN 1.27 ng/mL (0.8-2.0); GLUCOSE 257 mg/dL (75-110); POTASSIUM 4.5 mmol/L (3.6-5.0); SODIUM 133.8 mmol/L (137-145); TOTAL PROTEIN 5.4 g/dL (6.3-8.2)
--- NOTE | 2017-01-29 22:36 | ER Document Report ---
ED General - General Stated Complaint: STROKE LIKE SYMPTOMS Time Seen by Provider: 01/29/17 22:11 Information source: Relative Cannot obtain history due to: Dementia, Altered mental status Notes: Patient is an 86-year-old female with past medical history of advanced dementia , recent hospitalization I believe, atrial fibrillation currently off anticoagulants may represent with acute onset of left-sided facial droop, left- sided hemiparesis and slurred speech. This started at 2030 and has been constant since that time. No history of similar symptoms in the past. Patient arrived by EMS. The patient herself is unable to provide any meaningful history and history is as provided above by family at the bedside. TRAVEL OUTSIDE OF THE [place] IN LAST 30 DAYS: No - Related Data Allergies/Adverse Reactions: warfarin [From Coumadin] Allergy (Verified 09/16/16 07:36) Past Medical History - General Information source: Relative Cannot obtain history due to: Dementia, Unstable vital signs - Social History Smoking Status: Unknown if Ever Smoked Frequency of alcohol use: None Drug Abuse: None Lives with: Family Family History: Reviewed & Not Pertinent - Past Medical History Cardiac Medical History: Reports: Hx Atrial Fibrillation, Hx DVT, Hx Hypercholesterolemia, Hx Hypertension Endocrine Medical History: Reports: Hx Diabetes Mellitus Type 2 Musculoskeltal Medical History: Reports Hx Arthritis Psychiatric Medical History: Reports: Hx Dementia Past Surgical History: Reports: Hx Vascular Surgery - Recent vascular surgery performed in September to remove a DVT - Immunizations Hx Diphtheria, Pertussis, Tetanus Vaccination: Yes Review of Systems - Review of Systems -: Yes ROS unobtainable due to patient's medical condition Physical Exam - Vital signs Vitals: Resp Pulse Ox 23 H 100 01/29/17 21:43 01/29/17 21:43 Interpretation: Tachycardic, Tachypneic Notes: PHYSICAL EXAMINATION: GENERAL: Patient is frail, cachectic, sonorous respirations. HEAD: Atraumatic, normocephalic. EYES: Pupils equal round and reactive to light, gaze deviation to the right ENT: nares patent, oropharynx clear without exudates. Moderately dry mucous membranes. NECK: supple without lymphadenopathy LUNGS: Transmitted upper airway noises bilaterally. Breath sounds present bilaterally. Moderate tachypnea with shallow respirations HEART: Irregularly irregular tachycardia without murmurs ABDOMEN: Soft, nontender, normoactive bowel sounds. No guarding, no rebound. No masses appreciated. EXTREMITIES: no pitting or edema. No cyanosis. NEUROLOGICAL: There is a left-sided facial droop. Fixed rightward gaze deviation. Complete neglect of the left side. The arm and leg on the left dropped to bed immediately upon being held. Patient is able to follow commands on the right. Patient makes unintelligible noises when asked questions both in [place] and Nepali. She does shake her head yes or no to questions. PSYCH: Unable to assess SKIN: Warm, Dry, normal turgor, no rashes or lesions noted. Course - Re-evaluation Re-evalutation: 01/29/17 22:33 Patient presents with symptoms consistent with a large right MCA distribution stroke. She has a left-sided facial droop and complete left-sided neglect. She has gaze deviation toward the right that is fixed. Patient had a recent GI bleed and was admitted to an outside facility but an endoscopy did not demonstrate any source of bleeding and the bleeding was noted to have been resolved. She is not currently on any anticoagulation although she was on Eliquis at time of her admission to [facility] but has not been on any anticoagulation for the past 3-4 days per family. I have discussed at length with the family at the bedside including her [id number],, and that the patient has a very grave prognosis given her age, the elevated NIH stroke scale at time of arrival, as well as her extensive comorbidities including severe emaciation, recent hospitalization, and advanced dementia. I have explained that overall she is a very poor candidate for TPA given her recent GI bleed and elevated risk for intracranial hemorrhage based on age and size of her stroke. However, I have explained to them that she does not have any absolute contraindications to TPA at this time and have reviewed the risks and benefits of each approach at length. I am awaiting family decision at this time. 01/29/17 23:04 Stool is guaiac positive without any active bleeding on exam or significant anemia. However at this point I believe the risks of administering TPA to this patient outweigh the potential benefits and she does now have an absolute contraindication to administration. She continues to protect her airway at this point although remains somewhat somnolent. No indication for intubation at this time. I have explained at length to the family that the patient is unfortunately not a candidate for TPA at this time due to her elevated risk of bleeding. 01/29/17 23:28 Family is agreeable to comfort measures at this time. I have reviewed with the son Ned as well as the , [id number] and sister all the bedside that the patient would not want intubation, chest compressions, feeding tubes, or aggressive measures. Will proceed with comfort measures at this time and admission to the hospital. - Vital Signs Vital signs: Temp Pulse Resp BP Pulse Ox 96.9 F L 103 H 14 152/108 H 98 01/29/17 22:43 01/30/17 00:00 01/30/17 01:16 01/30/17 01:15 01/30/17 01:16 - Laboratory Result Diagrams: 01/29/17 22:05 01/29/17 22:05 Laboratory results interpreted by me: 01/29/17 01/29/17 22:05 22:05 RDW 21.6 H Seg Neuts % (Manual) 79 H Band Neutrophils % 2 L Lymphocytes % (Manual) 9 L Sodium 133.8 L Glucose 257 H AST 73 H Total Protein 5.4 L Albumin 3.0 L - Diagnostic Test Radiology reviewed: Image reviewed, Reports reviewed Radiology results interpreted by me: 01/30/17 02:08 CT head: No acute intracranial bleed 01/30/17 02:08 Chest x-ray: No pneumonia or pneumothorax - EKG Interpretation by Me Additional EKG results interpreted by me: 01/30/17 02:08 Atrial fibrillation with rapid ventricular response. Rate 110. No ST elevations or depressions. QTC is 482. Critical Care Note - Critical Care Note Total time excluding time spent on procedures (mins): 42 Comments: Critical care time spent obtaining history from patient or surrogate, discussions with consultants, development of treatment plan with patient or surrogate, evaluation of patient's response to treatment, examination of patient , ordering and performing treatments and interventions, ordering and review of laboratory studies, re-evaluation of patient's condition, ordering and review of radiographic studies and review of old charts Discharge - Discharge Clinical Impression: CVA (cerebral vascular accident) Qualifiers: CVA mechanism: unspecified Qualified Code(s): I63.9 - Cerebral infarction, unspecified Dementia Qualifiers: Dementia type: Alzheimer's disease Alzheimer's disease onset: unspecified onset Dementia behavioral disturbance: without behavioral disturbance Qualified Code(s): G30.9 - Alzheimer's disease, unspecified; F02.80 - Dementia in other diseases classified elsewhere without behavioral disturbance Condition: Critical Disposition: ADMITTED INPATIENT [facility] Unit Admitted: Medical Floor
[2017-01-29 22:45] LABS: CREATINE KINASE MB 2.82 ng/mL (<4.55)
[2017-01-29 22:48] LABS: BAND NEUTROPHILS % (MANUAL) 2 % (3-5); BASOPHILS % (MANUAL) 0 % (0-2); EOSINOPHILS % (MANUAL) 0 % (0-6); LYMPHOCYTES % (MANUAL) 9 % (13-45); TOTAL CELLS COUNTED 100
[2017-01-29 22:50] LABS: ANISOCYTOSIS 3+; OVALOCYTES 1+; PLATELET CLUMPS PRESENT; POIKILOCYTOSIS SLIGHT; POLYCHROMASIA 1+; SCHISTOCYTES SLIGHT; SMUDGE CELLS PRESENT
[2017-01-29 22:54] LABS: TROPONIN I 0.037 ng/mL
[2017-01-29] MEDS ORDERED: MORPHINE SULFATE 10 MG/ML INJ IV PRN (23:27)
[2017-01-29] MEDS ORDERED: ONDANSETRON HCL INJ/PF 4 MG/2 ML SDV IV PRN (23:39)
[2017-01-29] MEDS ORDERED: SCOPOLAMINE HYDROBROMIDE 1.5 MG PATCH.TD72 TD ONE (23:39)
[2017-01-30 01:20] VITALS: BP 152/108
[2017-01-30] MEDS ORDERED: SCOPOLAMINE HYDROBROMIDE 1.5 MG PATCH.TD72 ONE (02:47)
[2017-01-30] MEDS: LORAZEPAM INJ 2 MG/1 ML VIAL IV PRN ×2 (02:58→07:00)
[2017-01-30] MEDS ORDERED: MORPHINE SULFATE 10 MG/ML INJ IV PRN ×3 (03:28→07:35)
--- NOTE | 2017-01-30 06:50 | PDOC H&P ---
History of Present Illness Admission Date/PCP: 01/29/17 23:39 SARAH MUELLER DO Patient complains of: Left sided facial droop and neglect History of Present Illness: ORA EVERETT is a 86 year old female with a past medical history of advanced dementia atrial fibrillation and recent GI bleed who discontinued Eliquis within the last week. In the emergency room she has a right-sided gaze, lack of gag reflex left-sided facial droop and left-sided neglect. Hemoccult stool is positive and subsequently not a candidate for thrombolysis. Patient's family is at bedside verify patient's wishes of DNR and comfort measures only which are initiated. Patient transferred to the hospitalist for admission. Past Medical History Cardiac Medical History: Reports: Atrial Fibrillation, DVT, Hyperlipidema, Hypertension Endocrine Medical History: Reports: Diabetes Mellitus Type 2 Musculoskeltal Medical History: Reports: Arthritis Psychiatric Medical History: Reports: Dementia Past Surgical History Past Surgical History: Reports: Vascular Surgery - Recent vascular surgery performed in September to remove a DVT Social History Information Source: Relative Lives with: Family Smoking Status: Unknown if Ever Smoked Frequency of Alcohol Use: None Hx Recreational Drug Use: No Drugs: None Hx Prescription Drug Abuse: No - Advance Directive Resuscitation Status: Comfort Measures Only Family History Family History: None Parental Family History Reviewed: No - Unable to obtain Children Family History Reviewed: No Sibling(s) Family History Reviewed.: No Medication/Allergy Home Medications: Apixaban [Eliquis 2.5 mg Tablet] 2.5 mg PO Q12 01/01/17 Aspirin [Ecotrin 81 mg EC Tablet] 81 mg PO DAILY 01/01/17 Digoxin [Lanoxin 0.125 mg Tablet] 0.125 mg PO DAILY@1300 01/01/17 Diltiazem HCl [Taztia Xt] 180 mg PO DAILY 01/01/17 Donepezil HCl [Aricept] 10 mg PO QHS 01/01/17 Etanercept [Enbrel] 50 mg SQ MO 01/01/17 Folic Acid 1 mg PO DAILY 01/01/17 Hydroxychloroquine Sulfate [Plaquenil 200 mg Tablet] 200 mg PO WEFR 01/01/17 Lisinopril [Zestril] 20 mg PO QPM 01/01/17 Methotrexate Sodium [Methotrexate] 15 mg PO SA 01/01/17 Metoprolol Tartrate [Lopressor 50 mg Tablet] 25 mg PO Q12 01/01/17 Pravastatin Sodium [Pravachol] 40 mg PO QHS 01/01/17 Prednisone [Deltasone 5 mg Tablet] 5 mg PO DAILY 01/01/17 Spironolactone [Aldactone 25 mg Tablet] 25 mg PO WEFR@1800 01/01/17 Cefdinir [Omnicef 300 mg Capsule] 1 cap PO BID #14 capsule 01/03/17 Diphenoxylate HCl/Atrop Sulf [Lomotil 2.5 mg Tablet] 1 tab PO QID PRN #30 tablet 01/03/17 Lidocaine [Lidoderm 5% (700 mg) Transdermal Patch] 1 patch TP DAILY #30 adh..patch 01/03/17 Allergies/Adverse Reactions: warfarin [From Coumadin] Allergy (Verified 09/16/16 07:36) Review of Systems ROS unobtainable: Due to mental status - Unobtainable Physical Exam Vital Signs: Temp Pulse Resp BP Pulse Ox 96.9 F L 153 H 14 152/108 H 98 01/29/17 22:43 01/30/17 03:00 01/30/17 01:16 01/30/17 01:15 01/30/17 01:16 Intake & Output 01/28/17 01/29/17 01/30/17 11:59 11:59 11:59 Intake Total 1 Output Total 0 Balance 1 Weight 35.3 kg General appearance: PRESENT: severe distress, thin Head exam: PRESENT: atraumatic Eye exam: PRESENT: conjunctiva pink, PERRLA. ABSENT: EOMI, scleral icterus Ear exam: PRESENT: normal external ear exam Mouth exam: PRESENT: dry mucosa, neck supple. ABSENT: laceration Neck exam: ABSENT: carotid bruit, JVD, lymphadenopathy, thyromegaly Respiratory exam: PRESENT: clear to auscultation madhav, rhonchi - Airway rhonchi. ABSENT: rales, wheezes Cardiovascular exam: PRESENT: irregular rhythm Pulses: PRESENT: normal dorsalis pedis pul Vascular exam: PRESENT: normal capillary refill GI/Abdominal exam: PRESENT: normal bowel sounds, soft. ABSENT: distended, guarding, mass, organolmegaly, rebound, tenderness Neurological exam: PRESENT: altered, motor sensory deficit, aphasic Results Impressions: Chest X-Ray 01/29/17 21:34 IMPRESSION: NO ACUTE CARDIOPULMONARY PROCESS. NO SIGNIFICANT CHANGE FROM PRIOR STUDY. Head CT 01/29/17 21:34 IMPRESSION: NO CT DEFINITE EVIDENCE OF ACUTE ISCHEMIA, HEMORRHAGE, OR MASS LESION. NO SIGNIFICANT CHANGE FROM PRIOR STUDY. Assessment & Plan - Diagnosis (1) CVA (cerebral vascular accident) Qualifiers: CVA mechanism: unspecified Qualified Code(s): I63.9 - Cerebral infarction, unspecified Is this a current diagnosis for this admission?: YesPlan: Large CVA, likely secondary to A. fib and recent discontinuation of Eliquis secondary to GI bleed. Unable to protect airway. Patient wishing comfort measures only initiated (2) Dementia Qualifiers: Dementia type: Alzheimer's disease Alzheimer's disease onset: unspecified onset Dementia behavioral disturbance: without behavioral disturbance Qualified Code(s): G30.9 - Alzheimer's disease, unspecified; F02.80 - Dementia in other diseases classified elsewhere without behavioral disturbance Is this a current diagnosis for this admission?: YesPlan: comfort measures, morphine and Ativan as needed - Time Time Spent: 30 to 50 Minutes - Inpatient Certification Medical Necessity: Need for Pain Control
[2017-01-30] MEDS ORDERED: GLYCOPYRROLATE INJ 0.4 MG/2 ML VIAL IV PRN (07:34)
--- NOTE | 2017-01-30 08:18 | EKG REPORT ---
SEVERITY:- ABNORMAL ECG - ATRIAL FIBRILLATION, V-RATE 82-160 NONSPECIFIC REPOL ABNORMALITY, DIFFUSE LEADS LVH : Confirmed by: Robert Ruth MD 30-Jan-2017 08:17:48
[2017-01-30] MEDS: ATROPINE SULFATE 1% OPH SOLN 5 ML BOTTLE SL PRN ×2 (11:16→17:44)
--- NOTE | 2017-01-30 13:09 | PDOC PROGRESS REPORT ---
Subjective Progress Note for:: 01/30/17 Subjective:: Patient seen on morning rounds. She is unresponsive to verbal or tactile stimuli. She has noisy oral secretions. She otherwise appears in no distress. Her daughter and son-in-law are at bedside Physical Exam Vital Signs: Temp Pulse Resp BP Pulse Ox 96.9 F L 153 H 14 152/108 H 98 01/29/17 22:43 01/30/17 03:00 01/30/17 01:16 01/30/17 01:15 01/30/17 01:16 Intake & Output 01/29/17 01/30/17 01/31/17 06:59 06:59 06:59 Intake Total 1 Output Total 0 Balance 1 Weight 35.3 kg General appearance: PRESENT: no acute distress, thin, well-developed Head exam: PRESENT: atraumatic, normocephalic Eye exam: PRESENT: conjunctiva pale, other Ear exam: PRESENT: normal external ear exam Mouth exam: PRESENT: moist, tongue midline Teeth exam: PRESENT: edentulous Neck exam: ABSENT: carotid bruit, JVD, lymphadenopathy, thyromegaly Respiratory exam: PRESENT: rhonchi - bilaterally, symmetrical, unlabored Cardiovascular exam: PRESENT: RRR, tachycardia. ABSENT: diastolic murmur, rubs , systolic murmur Vascular exam: PRESENT: normal capillary refill GI/Abdominal exam: PRESENT: normal bowel sounds, soft. ABSENT: distended, guarding, mass, organolmegaly, rebound, tenderness Rectal exam: PRESENT: deferred Extremities exam: PRESENT: full ROM. ABSENT: calf tenderness, clubbing, pedal edema Neurological exam: PRESENT: altered, aphasic, other - extremities flaccid bilaterally, right sided facial droop. ABSENT: motor sensory deficit Focused psych exam: PRESENT: other Skin exam: PRESENT: other - unresponsive Results Impressions: Chest X-Ray 01/29/17 21:34 IMPRESSION: NO ACUTE CARDIOPULMONARY PROCESS. NO SIGNIFICANT CHANGE FROM PRIOR STUDY. Head CT 01/29/17 21:34 IMPRESSION: NO CT DEFINITE EVIDENCE OF ACUTE ISCHEMIA, HEMORRHAGE, OR MASS LESION. NO SIGNIFICANT CHANGE FROM PRIOR STUDY. Assessment & Plan - Diagnosis (1) Comfort measures only status Is this a current diagnosis for this admission?: YesPlan: Robinul and atropine drops given to help quiet oral secretions. She is not tachypneic or agitated at the present time. (2) CVA (cerebral vascular accident) Qualifiers: CVA mechanism: unspecified Qualified Code(s): I63.9 - Cerebral infarction, unspecified Is this a current diagnosis for this admission?: YesPlan: Patient with significant neurological deficit from obvious CVA - Time Time Spent with patient: 25-34 minutes Critical Time spent with patient: 15-24 minutes Anticipated discharge: Hospice
--- NOTE | 2017-01-31 07:35 | Death Summary ---
Summary Date : 01/30/17 Time of :: 18:02 Autopsy: No Resuscitation Status: Comfort Measures Only Primary Care Provider: Carole Mcrae DO - Final Diagnosis (1) Comfort measures only status Is this a current diagnosis for this admission?: Yes (2) CVA (cerebral vascular accident) Is this a current diagnosis for this admission?: Yes Hospital Course:: ORA EVERETT is a 86 year old female with a past medical history of advanced dementia atrial fibrillation and recent GI bleed who discontinued Eliquis within the last week. In the emergency room she has a right-sided gaze, lack of gag reflex left-sided facial droop and left-sided neglect. Hemoccult stool is positive and subsequently not a candidate for thrombolysis. Patient's family is at bedside verify patient's wishes of DNR and comfort measures only which are initiated. Patient was admitted to the medical floor with comfort measures in place. Her daughter and son-in-law remained at her bedside. She had no symptoms that needed to be managed other than mild tachypnea and terminal secretions. She comfortably at 1802.
== END 2017-01-30 18:02 | disposition left against medical advice (07) | DRG 65 ==
LOC: ER 21:33 → EH 23:39 → UNDOADMIN 01-30 00:01 → 5 01-30 01:35
PROVIDERS: ADMIT Internal Medicine; ATTEND Internal Medicine
DX: I63.9 Cerebral infarction, unspecified (principal); R41.4 Neurologic neglect syndrome; Z51.5 Encounter for palliative care; I48.91 Unspecified atrial fibrillation; R29.810 Facial weakness; I10 Essential (primary) hypertension; E78.5 Hyperlipidemia, unspecified; E11.9 Type 2 diabetes mellitus without complications; M19.90 Unspecified osteoarthritis, unspecified site; R47.81 Slurred speech; G30.9 Alzheimer's disease, unspecified; F02.80 Dementia in other diseases classified elsewhere, unspecified severity, without behavioral disturbance, psychotic disturbance, mood disturbance, and anxiety; Z66 Do not resuscitate; Z86.718 Personal history of other venous thrombosis and embolism; Z79.899 Other long term (current) drug therapy; Z79.82 Long term (current) use of aspirin; Z79.52 Long term (current) use of systemic steroids; Z88.6 Allergy status to analgesic agent
CPT/HCPCS: 36415; 70450; 71010; 80053; 80162; 82272; 82550; 82553; 84484; 85025; 85610; 85730; 93005; 93010; 99291; J2060; J2270